=== PATIENT | male | born 1955 | race Caucasian/White ===

== ENCOUNTER → 2017-01-08 | Outpatient (CLI) | payer OTHER ==
[~2017-01-08] MED LIST: LISI-461 PO; PRLSR20 PO; ZLFUNK PO
[2017-01-08 12:34] LABS: BASO % 0.5 %; BASO ABS # 0.04 K/uL (0-0.2); COMPLETE YES; EOS % 4.2 %; HEMATOCRIT 46.8 % (42-52); IG% 0.1 %; LYMPH % 24.9 %; LYMPH ABS # 1.94 K/uL (1.2-3.4); MEAN CELL VOLUME 93.6 fL (80-100); MEAN CORPUSCULAR HEMOGLOBIN 30.2 pg (25-34); MEAN CORPUSCULAR HGB CONC 32.3 g/dl (32-36); MEAN PLATELET VOLUME 9.6 fL (7.4-10.4); MONO % 7.8 %; NEUT % 62.5 %; PLATELET COUNT 321 K/uL (130-400); WHITE BLOOD COUNT 7.79 K/uL (4.8-10.8)
[2017-01-08 13:06] LABS: CALCIUM 9.7 mg/dl (8.5-10.1)
[2017-01-08 13:08] LABS: ALKALINE PHOSPHATASE 79 U/L (45-117); ALT/SGPT 43 U/L (12-78); AST/SGOT 16 U/L (15-37); BLOOD UREA NITROGEN 13 mg/dl (7-18); BUN/CREATININE RATIO 11.6 (10-20); CARBON DIOXIDE 31 mmol/L (21-32); CHLORIDE 106 mmol/L (98-107); CHOLESTEROL 144 mg/dl (0-200); GLUCOSE 131 mg/dl (70-99); POTASSIUM 4.5 mmol/L (3.5-5.1); SODIUM 143 mmol/L (136-145); TRIGLYCERIDES 118 mg/dl (0-150); URIC ACID 7.3 mg/dl (2.6-7.2); VERY LOW DENSITY LIPOPROT CALC 24 mg/dl
[2017-01-08 13:09] LABS: ALB/GLOB RATIO 1.2 (0.9-2); CHOLESTEROL/HDL RATIO 3.3; HDL CHOLESTEROL 43 mg/dl; LDL CHOLESTEROL CALCULATED 77 mg/dl
[2017-01-08 13:21] LABS: ESTIMATED AVERAGE GLUCOSE 137 mg/dl; HA1C FLAG Normal (Normal)
== END | disposition home or self-care (01) ==
LOC: C.LABBFT 09:34
PROVIDERS: ATTEND Internal Medicine
DX: E11.9 Type 2 diabetes mellitus without complications (principal); M10.9 Gout, unspecified; E78.00 Pure hypercholesterolemia, unspecified

== ENCOUNTER → 2017-09-12 | Outpatient (CLI) | payer OTHER ==
[~2017-09-12] MED LIST changes: +DILT360C17 PO; +VALS320T PO; +VENL150C56 PO
[2017-09-12 12:37] LABS: HEMOGLOBIN A1C 6.4 % (4.5-5.6)
[2017-09-12 12:53] LABS: ALBUMIN 3.8 gm/dl (3.4-5.0); ALT/SGPT 77 U/L (12-78); BLOOD UREA NITROGEN 14 mg/dl (7-18); CALCIUM 9.4 mg/dl (8.5-10.1); CARBON DIOXIDE 31 mmol/L (21-32); CHOLESTEROL 224 mg/dl (0-200); CREATININE 1.16 mg/dl (0.60-1.40); GLUCOSE 125 mg/dl (70-99); SODIUM 139 mmol/L (136-145)
[2017-09-12 12:57] LABS: ALKALINE PHOSPHATASE 78 U/L (45-117); AST/SGOT 34 U/L (15-37); LDL CHOLESTEROL CALCULATED 129 mg/dl; TOTAL PROTEIN 7.2 gm/dl (6.4-8.2)
== END | disposition home or self-care (01) ==
LOC: C.LABBFT 09:57
PROVIDERS: ATTEND Urology
DX: N52.9 Male erectile dysfunction, unspecified (principal); R97.20 Elevated prostate specific antigen [PSA]; E78.00 Pure hypercholesterolemia, unspecified; E11.9 Type 2 diabetes mellitus without complications

== ENCOUNTER → 2017-10-06 | Outpatient (CLI) | payer OTHER ==
[~2017-10-06] MED LIST changes: -DILT360C17 PO; +GADAVIST IV PRN; -VALS320T PO; -VENL150C56 PO
--- NOTE | 2017-10-06 13:02 | DIAGNOSTIC IMAGING REPORT ---
PROSTATE MRI COMBO CLINICAL HISTORY: 62 years-old Male presenting with C61 Malignant neoplasm of [id number] Elevated PSA. TECHNIQUE: Multisequence, multiplanar MR imaging of the prostate was performed before and after the administration of intravenous contrast. Additional postprocessing was performed on a separate [employer] workstation by the radiologist for 3-D volumetric segmentation of the prostate and contouring of region(s) of interest (FREEDOM) for targeting. IV contrast: None. COMPARISON: None. FINDINGS: Prostate: The prostate measures 5.1 cm (FolicaaCAD prostate boundary segmentation volume 63 mL). Moderate changes of benign prostatic hyperplasia. Precontrast T1 weighted imaging demonstrates no evidence of intrinsic T1 hyperintensity to suggest hemorrhage. Seminal vesicles normal. No suspicious lesion is apparent in the transition or peripheral zones. Bladder: Normal. Bowel: Visualized portion of the rectum normal. Peritoneum: No free fluid in the pelvis. Lymph nodes: No lymphadenopathy in the visualized portion of the pelvis. Vasculature: Iliac vessels patent. Abdominal wall: Tiny bilateral fat-containing hernias. Osseous structures: Normal bone marrow signal intensity. IMPRESSION: 1. No suspicious lesions identified within the prostate gland. 2. Benign prostatic hyperplasia. Electronically signed by: Darrel Morrison M.D. 10/06/2017 1:00 PM Dictated Date/Time: 10/06/2017 12:54 PM
== END | disposition home or self-care (01) ==
LOC: C.MRIBC 09:13
PROVIDERS: ATTEND Urology
DX: C61 Malignant neoplasm of prostate (principal); R97.20 Elevated prostate specific antigen [PSA]

== ENCOUNTER 2021-05-29 09:06 | Inpatient (IN) ==
[2021-05-29 09:38] LABS: Appearance Urine Clear (Clear); Bacteria Urine Automated 1+ (Negative); Bilirubin Urine Negative (Negative); Blood Urine 2+ (Negative); Color Urine Yellow; Glucose Urine UA 3+ (Negative); Ketones Urine 1+ (Negative); Leukocyte Esterase Urine Negative (Negative); Nitrite Urine Negative (Negative); Protein Urine 2+ (Negative); Specific Gravity Urine 1.016 (1.000-1.030); Urobilinogen Urine Negative (Negative)
[2021-05-29] MEDS ORDERED: SODIUM CHLORIDE 0.9% 1000ML 1,000 ML IV ONE ×2 (10:52→14:36)
[2021-05-29 12:22] LABS: Basophils # (auto) 0.02 K/uL (0-0.2); Basophils % (auto) 0.1 %; Eosinophils # (auto) 0.01 K/uL (0-0.5); Hematocrit (blood only) 45.3 % (42-52); Hemoglobin 15.2 g/dL (14.0-18.0); Immature Granulocytes # (auto) 0.06 K/uL (0.00-0.02); Immature Granulocytes % (auto) 0.3 %; Lymphocytes # (auto) 1.07 K/uL (1.2-3.4); Lymphocytes % (auto) 5.2 %; Mean Corpuscular Hgb Conc 33.6 g/dL (32-36); Mean Corpuscular Volume 92.4 fL (80-100); Mean Platelet Volume 9.8 fL (7.4-10.4); Monocytes # (auto) 1.68 K/uL (0.11-0.59); Monocytes % (auto) 8.2 %; Neutrophils % (auto) 86.2 %; Platelet Count 350 K/uL (130-400); RDW Coefficient of Variation 14.4 % (11.5-14.5); RDW Standard Deviation 48.9 fL (36.4-46.3); White Blood Count 20.44 K/uL (4.8-10.8)
[2021-05-29] MEDS ORDERED: CIPROFLOXACIN / D5W 400 MG/200 ML BAG IV STA (12:32)
[2021-05-29 12:43] LABS: BUN Creatinine Ratio 8.9 (10-20); Calcium 9.3 mg/dl (8.5-10.1); Creatinine Clr Calc Pharmacy 54.1 ml/min; Est GFR (African American) 46.7 ml/min; Est GFR (Non-African American) 40.3 ml/min; Potassium 4.7 mmol/L (3.5-5.1)
--- NOTE | 2021-05-29 12:47 | Emergency Department Note ---
History of Present Illness General Chief complaint: Urinary Symptoms Stated complaint: SEVERE PAIN-BLADDER AND PROSTATE AREA Time Seen by Provider: 05/29/21 10:05 History of Present Illness Provider complaint: Dysuria polyuria Onset (ago): day(s) 1 Location: genitals Maximum Pain Intensity: 5 Current Pain Intensity: 5 Quality: + burning, + aching and + dull Relieved By: + none Exacerbated By: + other (Urination) Associated symptoms: no chest pain, no cough, no fever/chills, no headaches, no nausea/vomiting or no shortness of breath 66-year-old male presents emergency department with dysuria and polyuria. Patient reports his symptoms began yesterday. Patient reports that his pain is made worse when he urinates. Patient states he feels like he cannot urinate and empty his bladder completely. Patient states he is also been having some pain in his testicles as well as in his rectal area and states he feels like he cannot empty his bladder identifies having discomfort. Patient does state he has a history of lesions on his prostate that they were concerned could be cancerous however he follows up with Dr. Ludwig and they have just been monitoring these lesions. Patient has not had any active treatment for prostate cancer including no radiation chemotherapy or surgery. No fevers. Patient reports nausea but no vomiting. Patient states he has a history of kidney stones but does not feel similar to kidney stones. Home Medications Medication Instructions Recorded Confirmed Type [id number]-[id number]-[id number] 250 1 tab PO Q6H PRN 03/03/20 05/29/21 History mg-250 mg-65 mg tablet (Excedrin Migraine) cholecalciferol (vitamin D3) 25 25 mcg PO DAILY 03/03/20 05/29/21 History mcg (1,000 unit) capsule (Vitamin D3) vitamin B complex 1 tab PO DAILY 03/03/20 05/29/21 History metformin 500 mg tablet,extended 1,000 mg PO BID #360 tab 04/25/20 05/29/21 Rx release 24 hr sildenafil 100 mg tablet 100 mg PO DAILY PRN #18 tab 04/25/20 05/29/21 Rx amlodipine 5 mg tablet 5 mg PO DAILY #30 tab 04/16/21 05/29/21 Rx duloxetine 60 mg capsule,delayed 60 mg PO QAM #90 cap 04/16/21 05/29/21 Rx release irbesartan 300 mg tablet 300 mg PO QAM #90 tab 05/11/21 05/29/21 Rx aspirin 81 mg tablet,delayed 81 mg PO DAILY 05/29/21 05/29/21 History release ciprofloxacin HCl 500 mg tablet 500 mg PO BID 14 Days #28 tab 05/29/21 Rx ibuprofen 200 mg tablet 200 mg PO Q6H PRN 05/29/21 05/29/21 History Allergies Allergy/AdvReac Type Severity Reaction Status Date / Time No Known Allergies Allergy Unverified 05/29/21 11:41 Past Med/Surg History Medical History (Updated 05/29/21 @ 15:04 by TOBIN Thrasher) Acid reflux occasional; mylanta as needed Anemia Arthritis Cardiac murmur last echo > 10 years ago - does not follow w/ cardio. states "i think i outgrew it" Depression with anxiety Fatty liver disease, nonalcoholic Gastroesophageal reflux disease Gout History of colon polyps Migraines Mitral regurgitation Morbid obesity Obstructive sleep apnea BiPAP Prostate cancer no treatment - surveillance Urinary leakage Surgical History History of cataract surgery History of colonoscopy History of esophagogastroduodenoscopy (EGD) History of tonsillectomy Family History Father Slow to wake up after anesthesia Mother Slow to wake up after anesthesia Breast cancer Denies family history of Ovarian cancer Prostate cancer Myocardial infarction Colorectal cancer Social History Smoking Status: Never smoker Second Hand Exposure: No; Hx Alcohol Use: No Hx Substance Use: No Preferred Language: Tajik Communication Ability: Effective 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 Beliefs That Will Affect Care: None marital status: single Current Living Situation: Family current occupational status: employed current occupation: director of [employer] at [employer] Feels Safe at Home: Yes Dental Care, Regularly: No Physical Activity Frequency: Does not Exercise Assistive Devices: Glasses Review of Systems A total of 10 systems reviewed and were otherwise negative Physical Exam Vital Signs Vital Signs - 24 hr 05/29/21 09:16 05/29/21 10:49 05/29/21 11:02 Temperature 36.8 C Temperature Source Temporal Artery Scan Pulse Rate 124 H 132 H 126 H Pulse Rate [Apical] 137 H Pulse Rate from SpO2 Sensor 126 H Pulse Rhythm Regular Pulse Rhythm [Apical] Regular Pulse Strength Normal Pulse Strength [Apical] Normal Respiratory Rate 20 28 H 32 H Respiratory Effort / Characteristics Non-Labored Non-Labored Spontaneous Respiratory Depth Normal Normal Respiratory Pattern Regular Regular Blood Pressure 187/111 H 199/116 H 215/114 H Blood Pressure [Right Arm] 199/116 H Blood Pressure Mean 136 143 147 Blood Pressure Mean [Right Arm] 143 Blood Pressure Position Sitting Blood Pressure Position [Right Arm] Sitting Pulse Oximetry 98 98 97 Oxygen Delivery Method Room Air Room Air Sepsis New/Unexplained Change in Mental Status N/A Sepsis Action Taken by Nursing No Action Required 05/29/21 11:03 05/29/21 12:00 05/29/21 12:30 Temperature Temperature Source Pulse Rate 131 H Pulse Rate [Apical] Pulse Rate from SpO2 Sensor 131 H 139 H Pulse Rhythm Pulse Rhythm [Apical] Pulse Strength Pulse Strength [Apical] Respiratory Rate 32 H Respiratory Effort / Characteristics Respiratory Depth Respiratory Pattern Blood Pressure 195/109 H Blood Pressure [Right Arm] Blood Pressure Mean 137 Blood Pressure Mean [Right Arm] Blood Pressure Position Blood Pressure Position [Right Arm] Pulse Oximetry 99 96 98 Oxygen Delivery Method Room Air Sepsis New/Unexplained Change in Mental Status Sepsis Action Taken by Nursing Physical Exam GENERAL: He is oriented to person, place, and time. He appears well-developed and well-nourished. He does not appear distressed. HENT: Exam performed. - Head: Normocephalic and atraumatic. - Right Ear: External ear normal. No mastoid tenderness. - Left Ear: External ear normal. No mastoid tenderness. - Mouth/Throat: The oropharynx is clear and moist. No trismus in the jaw. No dental abscesses or uvula swelling. No oropharyngeal exudate or tonsillar abscesses. EYES: Conjunctivae and EOM are normal. Pupils are equal, round, and reactive to light. Right eye exhibits no discharge. Left eye exhibits no discharge. No scleral icterus. NECK: Normal range of motion. Neck supple. No JVD present. No spinous process tenderness present. No carotid bruit present. No rigidity. No tracheal deviation and normal range of motion present. No Brudzinski's sign and no Kernig's sign noted. CV: Normal rate, regular rhythm, normal heart sounds and intact distal pulses. There is no peripheral edema. Palpable radial pulses bue. PULM/CHEST: Effort normal and breath sounds normal. No respiratory distress. No stridor. He has no wheezes. He has no rales. - Chest Wall: He exhibits no tenderness. ABD: The abdomen is soft. Bowel sounds are normal. He has no distension. No mass is present. There is no tenderness. There is no rebound, no guarding, no Mu rphy's sign and no tenderness at McBurney's point. Rovsig negative. No CVA tenderness bilaterally. : Pain on palpation over the epididymis. No pain on palpation of either testicle. Rectal: Good tone no bright red blood per rectum. MUSC/SKEL: Normal range of motion. There is no peripheral edema, tenderness or deformity. LYMPH: No cervical adenopathy. NEURO: He is alert and oriented to person, place, and time. He has normal strength. No cranial nerve deficit or sensory deficit. Coordination and gait normal. GCS eye subscore is 4. GCS verbal subscore is 5. GCS motor subscore is 6. Cerebellar tests wnl. SKIN: Skin is warm and dry. He is not diaphoretic. PSYCH: He has a normal mood and affect. Behavior is normal. Judgment and thought content normal. Course Course 1005: The patient was evaluated in room B3. A complete history and physical exam was performed Cardiac monitoring: An order was placed for continuous cardiac monitoring. The monitor shows a rate of 100 with sinus rhythm 1045: We are planning on discharging the patient home with antibiotics for presumed prostatitis/epididymitis however the patient was found to be very tachycardic at time of discharge. Labs and imaging ordered for the patient. 1404: Labs show leukocytosis of 20. Imaging shows a large left-sided kidney stone with hydroureteronephrosis. Discussed with urology GALINA Magaña who states she will be down to evaluate the patient. Discussed with [facility] hospitalist Dr. Zacarias will evaluate the patient for admission. Antibiotics ordered for the patient. 1435: Lactic acid greater than 1:04 liter of IV fluids. Additional IV fluids ordered for the patient. Patient blood pressure is stable. Urology made aware of the patient's lactic acid and state they will plan on taking the patient for stenting of his ureter later this afternoon. Administered Medications Discontinued Medications Sodium Chloride (Nss 1000ml) 1,000 mls @ 999 mls/hr IV .Q1H1M ONE Stop: 05/29/21 11:52 Last Infusion: 05/29/21 14:00 Dose: 999 mls/hr Documented by: [id number] Infusion: 05/29/21 13:29 Dose: 0 mls/hr Documented by: [id number] Admin: 05/29/21 12:46 Dose: 999 mls/hr Documented by: [id number] Ciprofloxacin (Cipro / D5w) 400 mg in 200 mls @ 200 mls/hr IV NOW STA Stop: 05/29/21 13:31 Last Infusion: 05/29/21 14:00 Dose: 200 mls/hr Documented by: [id number] Infusion: 05/29/21 13:29 Dose: 0 mls/hr Documented by: [id number] Admin: 05/29/21 12:46 Dose: 200 mls/hr Documented by: [id number] Critical Care Time Critical Care Time: Yes Total Critical Care Time: 64 I have personally spent greater than 64 minutes of critical care time in the direct management of this patient. This includes bedside care, interpretation of diagnostic studies, and testing, discussion with consultants, patient, and family members, and other required patient management activities. This 64 minutes is in excess of all separately billable procedures. Medical Decision Making Laboratory Data Result diagrams: 05/29/21 12:12 05/29/21 12:12 Lab Results 05/29/21 05/29/21 05/29/21 Range/Units 09:29 12:12 12:12 WBC 20.44 H (4.8-10.8) K/uL RBC 4.90 (4.7-6.1) M/uL Hgb 15.2 (14.0-18.0) g/dL Hct 45.3 (42-52) % MCV 92.4 (80-100) fL MCH 31.0 (25-34) pg MCHC 33.6 (32-36) g/dL RDW Std Deviation 48.9 H (36.4-46.3) fL RDW Coeff of Keven 14.4 (11.5-14.5) % Plt Count 350 (130-400) K/uL MPV 9.8 (7.4-10.4) fL Immature Gran % (Auto) 0.3 % Neut % (Auto) 86.2 % Lymph % (Auto) 5.2 % [place] % (Auto) 8.2 % Eos % (Auto) 0.0 % Baso % (Auto) 0.1 % Neut # (Auto) 17.60 H (1.4-6.5) K/uL Lymph # (Auto) 1.07 L (1.2-3.4) K/uL [place] # (Auto) 1.68 H (0.11-0.59) K/uL Eos # (Auto) 0.01 (0-0.5) K/uL Baso # (Auto) 0.02 (0-0.2) K/uL Immature Gran # (Auto) 0.06 H (0.00-0.02) K/uL Sodium 136 (136-145) mmol/L Potassium 4.7 (3.5-5.1) mmol/L Chloride 99 (98-107) mmol/L Carbon Dioxide 29 (21-32) mmol/L Anion Gap 8.0 (3-11) BUN 16 (7-18) mg/dl Creatinine 1.75 H (0.6-1.4) mg/dl Est Cr Clr Drug Dosing 54.1 ml/min Est GFR ( Amer) 46.7 ml/min Est GFR (Non-Af Amer) 40.3 ml/min BUN/Creatinine Ratio 8.9 L (10-20) Glucose 254 H (70-99) mg/dl Lactate (0.4-2.0) mmol/L Calcium 9.3 (8.5-10.1) mg/dl Specimen Hemolysis Urine Color Yellow Urine Appearance Clear (Clear) Urine pH 6.0 (4.5-7.5) Ur Specific [place] 1.016 (1.000-1.030) Urine Protein 2+ H (Negative) Urine Glucose (UA) 3+ H (Negative) Urine Ketones 1+ H (Negative) Urine Blood 2+ H (Negative) Urine Nitrite Negative (Negative) Urine Bilirubin Negative (Negative) Urine Urobilinogen Negative (Negative) Ur Leukocyte Esterase Negative (Negative) Urine WBC (Auto) 5-10 H (0-5) /hpf Urine RBC (Auto) 10-30 H (0-4) /hpf U Hyaline Cast (Auto) 1-5 (0-5) /lpf U Epithel Cells (Auto) 5-10 H (0-5) /lpf Urine Bacteria (Auto) 1+ H (Negative) 05/29/21 Range/Units 13:47 WBC (4.8-10.8) K/uL RBC (4.7-6.1) M/uL Hgb (14.0-18.0) g/dL Hct (42-52) % MCV (80-100) fL MCH (25-34) pg MCHC (32-36) g/dL RDW Std Deviation (36.4-46.3) fL RDW Coeff of Keven (11.5-14.5) % Plt Count (130-400) K/uL MPV (7.4-10.4) fL Immature Gran % (Auto) % Neut % (Auto) % Lymph % (Auto) % [place] % (Auto) % Eos % (Auto) % Baso % (Auto) % Neut # (Auto) (1.4-6.5) K/uL Lymph # (Auto) (1.2-3.4) K/uL [place] # (Auto) (0.11-0.59) K/uL Eos # (Auto) (0-0.5) K/uL Baso # (Auto) (0-0.2) K/uL Immature Gran # (Auto) (0.00-0.02) K/uL Sodium (136-145) mmol/L Potassium (3.5-5.1) mmol/L Chloride (98-107) mmol/L Carbon Dioxide (21-32) mmol/L Anion Gap (3-11) BUN (7-18) mg/dl Creatinine (0.6-1.4) mg/dl Est Cr Clr Drug Dosing ml/min Est GFR ( Amer) ml/min Est GFR (Non-Af Amer) ml/min BUN/Creatinine Ratio (10-20) Glucose (70-99) mg/dl Lactate 4.2 H* (0.4-2.0) mmol/L Calcium (8.5-10.1) mg/dl Specimen Hemolysis Urine Color Urine Appearance (Clear) Urine pH (4.5-7.5) Ur Specific [place] (1.000-1.030) Urine Protein (Negative) Urine Glucose (UA) (Negative) Urine Ketones (Negative) Urine Blood (Negative) Urine Nitrite (Negative) Urine Bilirubin (Negative) Urine Urobilinogen (Negative) Ur Leukocyte Esterase (Negative) Urine WBC (Auto) (0-5) /hpf Urine RBC (Auto) (0-4) /hpf U Hyaline Cast (Auto) (0-5) /lpf U Epithel Cells (Auto) (0-5) /lpf Urine Bacteria (Auto) (Negative) Imaging Data Radiologist's Impression: Scrotum Ultrasound 05/29/21 10:54 US scrotum/testicle CLINICAL HISTORY: 66 years-old Male with testicular pain dysuria. Acute scrotal pain with dysuria COMPARISON STUDY: CT abdomen and pelvis of same day TECHNIQUE: Real-time, grayscale, and color Doppler sonography of the testes and scrotum is performed. Images are reviewed in the transverse and longitudinal planes. FINDINGS: RIGHT HEMISCROTUM: The right testis measures 5.0 x 3.2 x 2.3 cm and the parenchyma appears unremarkable. No intratesticular mass is seen. Normal- appearing arterial inflow is present within the right testicle. 1.4 x 1.5 x 0.9 cm epididymal head cyst. No varicocele or hydrocele is identified. LEFT HEMISCROTUM: The left testis measures 4.3 x 3.2 x 2.4 cm and the parenchyma appears unremarkable. No intratesticular mass is seen. Normal-appearing arterial inflow is present within the left testicle. The left epididymal head appears normal. No varicocele or hydrocele is identified. IMPRESSION: 1. Unremarkable scrotal ultrasound. 2. 1.5 cm right epididymal head cyst. ACT 112: Negative or not required by law. The above report was generated using voice recognition software. It may contain grammatical, syntax or spelling errors. Electronically signed by: Aldair Lozano M.D. 05/29/2021 1:47 PM Abdomen/Pelvis CT 05/29/21 12:[address] WITHOUT CONTRAST CT DOSE: 1452.01 mGy.cm HISTORY: Acute dysuria with fever dysuria fever ro pyelo TECHNIQUE: Multiaxial CT images of the abdomen and pelvis were performed without contrast. A dose lowering technique was utilized adhering to the principles of ALARA. COMPARISON STUDY: CT abdomen and pelvis 06/04/2020 FINDINGS: Low clinical suspicion solid nodules of the basal left lower lobe measure up to 5 mm, unchanged from 06/04/2020. Unchanged right hemidiaphragmatic elevation. The imaged inferior cardiac chambers are unremarkable. No pneumatosis or pneumoperitoneum. The unenhanced spleen, pancreas, gallbladder and adrenal glands are unremarkable. Hepatomegaly with hepatic steatosis. No hepatic mass lesion joellen ntified. (Bilateral perinephric stranding. Right kidney is otherwise unremarkable. There is mild left-sided hydroureteronephrosis secondary to an obstructing 9 x 6 x 6 mm calculus within the distal aspect of the left ureterovesicular junction. Mild urinary bladder wall thickening with partial distention. Prostamegaly. Small fat filled inguinal hernias. Calcified plaque the abdominal aorta without aneurysm. No adenopathy. No bowel obstruction or bowel wall thickening. Mild colonic diverticulosis. No ascites or mesenteric inflammation. Normal appendix. Tiny fat filled periumbilical hernia. Degenerative changes of the spine, pelvis and hips. Large posterior disc osteophyte complex at L3-L4 and results in at least moderate central canal and bilateral neural foraminal narrowing. IMPRESSION: 1. Mild left-sided hydroureteronephrosis secondary to an obstructing 9 mm calculus of the left ureterovesicular junction. 2. No bowel obstruction or bowel wall thickening. Normal appendix. 3. Colonic diverticulosis. 4. Hepatic steatosis 5. Additional findings as above. ACT 112: Negative or not required by law. The above report was generated using voice recognition software. It may contain grammatical, syntax or spelling errors. Electronically signed by: Aldair Lozano M.D. 05/29/2021 1:15 PM ECG Data Indication: + abdominal pain Rate (beats per minute): 127 Rhythm: + sinus tachycardia ECG Intervals/blocks: + Normal QRS, + Normal PA and + Normal QT-c ECG ST segments: + Normal ST segments MDM Narrative 1005: The patient was evaluated in room B3. A complete history and physical exam was performed Cardiac monitoring: An order was placed for continuous cardiac monitoring. The monitor shows a rate of 100 with sinus rhythm 1045: We are planning on discharging the patient home with antibiotics for presumed prostatitis/epididymitis however the patient was found to be very tachycardic at time of discharge. Labs and imaging ordered for the patient. 1404: Labs show leukocytosis of 20. Imaging shows a large left-sided kidney stone with hydroureteronephrosis. Discussed with urology GALINA Magaña who states she will be down to evaluate the patient. Discussed with [facility] hospitalist Dr. Zacarias will evaluate the patient for admission. Antibiotics ordered for the patient. 1435: Lactic acid greater than 1:04 liter of IV fluids. Additional IV fluids ordered for the patient. Patient blood pressure is stable. Urology made aware of the patient's lactic acid and state they will plan on taking the patient for stenting of his ureter later this afternoon. Impression & Plan Hydronephrosis with renal calculous obstruction, WOODROW (acute kidney injury), Sepsis Discharge Plan Visit Data Chief Complaint: Urinary Symptoms Stated Complaint: SEVERE PAIN-BLADDER AND PROSTATE AREA ED Provider: Capo Madrigal Discharge Problem: Hydronephrosis with renal calculous obstruction, WOODROW (acute kidney injury), Sepsis Patient Disposition: Admitted As Inpatient Discharge Instructions Keely/Other Patient Handouts: ED Prostatitis Forms Stand Alone Forms: [facility], Virtual Emergency Department, Important Visit Information Prescriptions Prescriptions: New ciprofloxacin HCl 500 mg tablet 500 mg PO BID 14 Days Qty: 28 RF: 0 No Action duloxetine 60 mg capsule,delayed release(DR/EC) 60 mg PO QAM Qty: 90 RF: 3 amlodipine 5 mg tablet 5 mg PO DAILY Qty: 30 RF: 5 irbesartan 300 mg tablet 300 mg PO QAM Qty: 90 RF: 3 metformin 500 mg tablet extended release 24 hr 1,000 mg PO BID Qty: 360 RF: 3 sildenafil 100 mg tablet 100 mg PO DAILY PRN (Reason: sexual activity) Qty: 18 RF: 3 vitamin B complex Tablet 1 tab PO DAILY RF: 0 cholecalciferol (vitamin D3) [Vitamin D3] 25 mcg (1,000 unit) Capsule 25 mcg PO DAILY RF: 0 Excedrin Migraine 250-250-65 mg Tablet 1 tab PO Q6H PRN (Reason: Migraine Headache) RF: 0 aspirin [Aspir-Low] 81 mg Tablet,Delayed Release (Dr/Ec) 81 mg PO DAILY RF: 0 ibuprofen 200 mg Tablet 200 mg PO Q6H PRN (Reason: Pain) RF: 0 Referrals Referrals: Hiro Dudley MD [Primary Care Provider] - (Follow-up in 1-7 days.) Hiro Ludwig MD [Physician] - (Follow-up in 1-7 days.)
--- NOTE | 2021-05-29 13:17 | CT Scan Report ---
ABDOMEN AND PELVIS CT WITHOUT CONTRAST CT DOSE: 1452.01 mGy.cm HISTORY: Acute dysuria with fever dysuria fever ro pyelo TECHNIQUE: Multiaxial CT images of the abdomen and pelvis were performed without contrast. A dose lo wering technique was utilized adhering to the principles of ALARA. COMPARISON STUDY: CT abdomen and pelvis 06/04/2020 FINDINGS: Low clinical suspicion solid nodules of the basal left lower lobe measure up to 5 mm, uncha nged from 06/04/2020. Unchanged right hemidiaphragmatic elevation. The imaged inferior cardiac chamber s are unremarkable. No pneumatosis or pneumoperitoneum. The unenhanced spleen, pancreas, gallbladder and adrenal glands are unremarkable. Hepatomegaly with h epatic steatosis. No hepatic mass lesion identified. (Bilateral perinephric stranding. Right kidney is otherwise unremarkable. There is mild left-sided hy droureteronephrosis secondary to an obstructing 9 x 6 x 6 mm calculus within the distal aspect of the left ureterovesicular junction. Mild urinary bladder wall thickening with partial distention. Prosta megaly. Small fat filled inguinal hernias. Calcified plaque the abdominal aorta without aneurysm. No adenopathy. No bowel obstruction or bowel wall thickening. Mild colonic diverticulosis. No ascites or mesenteric inflammation. Normal appendix. Tiny fat filled periumbilical hernia. Degenerative changes of the spin e, pelvis and hips. Large posterior disc osteophyte complex at L3-L4 and results in at least moderate central canal and bilateral neural foraminal narrowing. IMPRESSION: 1. Mild left-sided hydroureteronephrosis secondary to an obstructing 9 mm calculus of the left ureter ovesicular junction. 2. No bowel obstruction or bowel wall thickening. Normal appendix. 3. Colonic diverticulosis. 4. Hepatic steatosis 5. Additional findings as above. ACT 112: Negative or not required by law. The above report was generated using voice recognition software. It may contain grammatical, syntax o r spelling errors. Electronically signed by: Aldair Lozano M.D. 05/29/2021 1:15 PM
--- NOTE | 2021-05-29 13:48 | Ultrasound Report ---
US scrotum/testicle CLINICAL HISTORY: 66 years-old Male with testicular pain dysuria. Acute scrotal pain with dysuria COMPARISON STUDY: CT abdomen and pelvis of same day TECHNIQUE: Real-time, grayscale, and color Doppler sonography of the testes and scrotum is performed. Images are reviewed in the transverse and longitudinal planes. FINDINGS: RIGHT HEMISCROTUM: The right testis measures 5.0 x 3.2 x 2.3 cm and the parenchyma appears unremarkab le. No intratesticular mass is seen. Normal-appearing arterial inflow is present within the right nicole ticle. 1.4 x 1.5 x 0.9 cm epididymal head cyst. No varicocele or hydrocele is identified. LEFT HEMISCROTUM: The left testis measures 4.3 x 3.2 x 2.4 cm and the parenchyma appears unremarkable . No intratesticular mass is seen. Normal-appearing arterial inflow is present within the left testic le. The left epididymal head appears normal. No varicocele or hydrocele is identified. IMPRESSION: 1. Unremarkable scrotal ultrasound. 2. 1.5 cm right epididymal head cyst. ACT 112: Negative or not required by law. The above report was generated using voice recognition software. It may contain grammatical, syntax o r spelling errors. Electronically signed by: Aldair Lozano M.D. 05/29/2021 1:47 PM
--- NOTE | 2021-05-29 14:32 | History & Physical Report ---
Date of Service May 29, 2021 Assessment & Plan (1) Nephrolithiasis: Plan: Concern for possible infection considering elevated white count Admit to a monitored bed Aggressive IV hydration Patient seen with urology, plans for cystoscopy with possible stent placement today or tomorrow, patient currently n.p.o. Patient was given Cipro IV in the emergency room, okay to continue these pending cultures Pain control with IV Tylenol and Dilaudid as needed (2) Hypertension: Plan: Patient on amlodipine and irbesartan as an outpatient, can continue these p.o. for now I will dose the morning Will give metoprolol 5 mg IV x1 now for very elevated blood pressure and heart rate Hopefully will come down with treatment of symptoms related to kidney stone (3) Non-alcoholic fatty liver disease: Plan: Continue to monitor, no signs of liver failure (4) Obstructive sleep apnea: Plan: I will order CPAP is for him patient is (5) Diabetes mellitus: Plan: Patient is on metformin which we will hold Low sliding scale insulin We will hold metformin for now Diabetic diet once cleared for p.o.'s History of Present Illness Chief Complaint: Abdominal pain Primary Care Provider: Kolton Dudley MD This is a 66-year-old male with past medical history of [place], hypertension, GERD, phw-gapekyg-zpsllozbx diabetes mellitus that presents today with lower abdominal pain. Patient is pleasantly good historian. Patient states that the pain started last night. It was fairly mild but continued to worsen throughout the night into this morning. He denied any fevers or chills. He denied any changes in his bowel function. He did note that he had incomplete emptying of his urine but that there is no hematuria or dysuria associated with this. He denies any fevers or chills. He also denies any palpitations, chest pain, or shortness of breath. The pain became severe enough for him to come to the emergency room for further evaluation. In the ER, he was found to be hypertensive and tachycardic, his pulse did reach into the 140s and was sinus tach on monitor. CT scan showed a 9 mm stone at the left ureterovesicular junction the patient is now being admitted for obstructing nephrolithiasis. Patient was seen with the urology [facility]. He tells us he had had nothing to eat since last night due to ongoing nausea. He is otherwise comfortable. Allergies Allergy/AdvReac Type Severity Reaction Status Date / Time No Known Allergies Allergy Unverified 05/29/21 11:41 Home Medications Medication Instructions Recorded Confirmed Type [id number]-gadxseapelems-mlmumeyf 250 1 tab PO Q6H PRN 03/03/20 05/29/21 History mg-250 mg-65 mg tablet (Excedrin Migraine) cholecalciferol (vitamin D3) 25 25 mcg PO DAILY 03/03/20 05/29/21 History mcg (1,000 unit) capsule (Vitamin D3) vitamin B complex 1 tab PO DAILY 03/03/20 05/29/21 History metformin 500 mg tablet,extended 1,000 mg PO BID #360 tab 04/25/20 05/29/21 Rx release 24 hr sildenafil 100 mg tablet 100 mg PO DAILY PRN #18 tab 04/25/20 05/29/21 Rx amlodipine 5 mg tablet 5 mg PO DAILY #30 tab 04/16/21 05/29/21 Rx duloxetine 60 mg capsule,delayed 60 mg PO QAM #90 cap 04/16/21 05/29/21 Rx release irbesartan 300 mg tablet 300 mg PO QAM #90 tab 05/11/21 05/29/21 Rx aspirin 81 mg tablet,delayed 81 mg PO DAILY 05/29/21 05/29/21 History release ciprofloxacin HCl 500 mg tablet 500 mg PO BID 14 Days #28 tab 05/29/21 Rx ibuprofen 200 mg tablet 200 mg PO Q6H PRN 05/29/21 05/29/21 History Past Med/Surg History Medical History (Updated 05/29/21 @ 14:33 by Jewel Zacarias DO) Acid reflux occasional; mylanta as needed Anemia Arthritis Cardiac murmur last echo > 10 years ago - does not follow w/ cardio. states "i think i outgrew it" Depression with anxiety Fatty liver disease, nonalcoholic Gastroesophageal reflux disease Gout History of colon polyps Migraines Mitral regurgitation Morbid obesity Obstructive sleep apnea BiPAP Prostate cancer no treatment - surveillance Urinary leakage Surgical History History of cataract surgery History of colonoscopy History of esophagogastroduodenoscopy (EGD) History of tonsillectomy Family History Father Slow to wake up after anesthesia Mother Slow to wake up after anesthesia Breast cancer Denies family history of Ovarian cancer Prostate cancer Myocardial infarction Colorectal cancer Social History Smoking Status: Never smoker Second Hand Exposure: No; Hx Alcohol Use: No Hx Substance Use: No Preferred Language: Filipino Communication Ability: Effective Mri Assistant Required: No Beliefs That Will Affect Care: None marital status: single Current Living Situation: Family current occupational status: employed 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[place] Feels Safe at Home: Yes Dental Care, Regularly: No Physical Activity Frequency: Does not Exercise Assistive Devices: Glasses Review of Systems Constitutional: no fever, no chills, no weakness, no weight loss and no weight gain Eyes: as per Subjective / HPI Respiratory: no cough, no chest congestion, no dyspnea and no dyspnea on exertion Cardiovascular: no chest pain, no orthopnea, no palpitations, no lightheadedness and no edema Gastrointestinal: + abdominal pain and + nausea; no vomiting, no hematemesis, no cramping, no constipation and no diarrhea/loose stools Genitourinary: + urinary frequency; no dysuria, no difficulty urinating, no urinary hesitancy, no urinary incontinence, no decreased urination or no hematuria Musculoskeletal: no back pain, no neck pain, no joint pain, no stiffness and no myalgia Integumentary: no rash Neurologic: no gait abnormality, no unsteadiness, no falls and no generalized weakness Physical Exam Constitutional: cooperative; no acute distress Neck: trachea midline, no thyromegaly Respiratory: normal respiratory effort Auscultation: lungs clear to auscultation bilaterally; no crackles, no rales, no rhonchi and no wheezes Cardiovascular: Rate/Rhythm: regular rhythm and + tachycardic Heart Sounds: normal S1 and normal S2 Gastrointestinal (Abdomen): Inspection/Auscultation: abdomen normal to inspection Percussion/Palpation: abdomen soft; abdomen nontender, no guarding, abdomen not rigid and no hepatosplenomegaly Skin: no rashes, warm and dry Genitourinary: no CVA tenderness Results & Data Results & Data ([facility]) Vital Signs (Past 12 Hours) Vital Signs Temp Pulse Pulse Resp BP BP Pulse Ox 05/29/21 12:30 98 05/29/21 12:00 131 H 32 H 195/109 H 96 05/29/21 11:03 99 05/29/21 11:02 126 H 32 H 215/114 H 97 05/29/21 10:49 132 H 137 H 28 H 199/116 H 199/116 H 98 05/29/21 09:16 36.8 C 124 H 20 187/111 H 98 Laboratory Results Laboratory Results WBC 20.44 K/uL (4.8-10.8) H 05/29/21 12:12 RBC 4.90 M/uL (4.7-6.1) 05/29/21 12:12 Hgb 15.2 g/dL (14.0-18.0) 05/29/21 12:12 Hct 45.3 % (42-52) 05/29/21 12:12 MCV 92.4 fL (80-100) 05/29/21 12:12 MCH 31.0 pg (25-34) 05/29/21 12:12 MCHC 33.6 g/dL (32-36) 05/29/21 12:12 RDW Std Deviation 48.9 fL (36.4-46.3) H 05/29/21 12:12 RDW Coeff of Keven 14.4 % (11.5-14.5) 05/29/21 12:12 Plt Count 350 K/uL (130-400) 05/29/21 12:12 MPV 9.8 fL (7.4-10.4) 05/29/21 12:12 Immature Gran % (Auto) 0.3 % 05/29/21 12:12 Neut % (Auto) 86.2 % 05/29/21 12:12 Lymph % (Auto) 5.2 % 05/29/21 12:12 [place] % (Auto) 8.2 % 05/29/21 12:12 Eos % (Auto) 0.0 % 05/29/21 12:12 Baso % (Auto) 0.1 % 05/29/21 12:12 Neut # (Auto) 17.60 K/uL (1.4-6.5) H 05/29/21 12:12 Lymph # (Auto) 1.07 K/uL (1.2-3.4) L 05/29/21 12:12 [place] # (Auto) 1.68 K/uL (0.11-0.59) H 05/29/21 12:12 Eos # (Auto) 0.01 K/uL (0-0.5) 05/29/21 12:12 Baso # (Auto) 0.02 K/uL (0-0.2) 05/29/21 12:12 Immature Gran # (Auto) 0.06 K/uL (0.00-0.02) H 05/29/21 12:12 Sodium 136 mmol/L (136-145) 05/29/21 12:12 Potassium 4.7 mmol/L (3.5-5.1) 05/29/21 12:12 Chloride 99 mmol/L (98-107) 05/29/21 12:12 Carbon Dioxide 29 mmol/L (21-32) 05/29/21 12:12 Anion Gap 8.0 (3-11) 05/29/21 12:12 BUN 16 mg/dl (7-18) 05/29/21 12:12 Creatinine 1.75 mg/dl (0.6-1.4) H 05/29/21 12:12 Est Cr Clr Drug Dosing 54.1 ml/min 05/29/21 12:12 Est GFR ( Amer) 46.7 ml/min 05/29/21 12:12 Est GFR (Non-Af Amer) 40.3 ml/min 05/29/21 12:12 BUN/Creatinine Ratio 8.9 (10-20) L 05/29/21 12:12 Glucose 254 mg/dl (70-99) H 05/29/21 12:12 Lactate 4.2 mmol/L (0.4-2.0) H* 05/29/21 13:47 Calcium 9.3 mg/dl (8.5-10.1) 05/29/21 12:12 Specimen Hemolysis 05/29/21 12:12 Urine Color Yellow 05/29/21 09: Urine Appearance Clear (Clear) 05/29/21 09: Urine pH 6.0 (4.5-7.5) 05/29/21 09:29 Ur Specific [place] 1.016 (1.000-1.030) 05/29/21 09:29 Urine Protein 2+ (Negative) H 05/29/21 09:29 Urine Glucose (UA) 3+ (Negative) H 05/29/21 09:29 Urine Ketones 1+ (Negative) H 05/29/21 09:29 Urine Blood 2+ (Negative) H 05/29/21 09:29 Urine Nitrite Negative (Negative) 05/29/21 09:29 Urine Bilirubin Negative (Negative) 05/29/21 09:29 Urine Urobilinogen Negative (Negative) 05/29/21 09:29 Ur Leukocyte Esterase Negative (Negative) 05/29/21 09:29 Urine WBC (Auto) 5-10 /hpf (0-5) H 05/29/21 09:29 Urine RBC (Auto) 10-30 /hpf (0-4) H 05/29/21 09:29 U Hyaline Cast (Auto) 1-5 /lpf (0-5) 05/29/21 09:29 U Epithel Cells (Auto) 5-10 /lpf (0-5) H 05/29/21 09:29 Urine Bacteria (Auto) 1+ (Negative) H 05/29/21 09:29 Impressions Scrotum Ultrasound 05/29/21 10:54 US scrotum/testicle CLINICAL HISTORY: 66 years-old Male with testicular pain dysuria. Acute scrotal pain with dysuria COMPARISON STUDY: CT abdomen and pelvis of same day TECHNIQUE: Real-time, grayscale, and color Doppler sonography of the testes and scrotum is performed. Images are reviewed in the transverse and longitudinal planes. FINDINGS: RIGHT HEMISCROTUM: The right testis measures 5.0 x 3.2 x 2.3 cm and the parenchyma appears unremarkable. No intratesticular mass is seen. Normal- appearing arterial inflow is present within the right testicle. 1.4 x 1.5 x 0.9 cm epididymal head cyst. No varicocele or hydrocele is identified. LEFT HEMISCROTUM: The left testis measures 4.3 x 3.2 x 2.4 cm and the parenchyma appears unremarkable. No intratesticular mass is seen. Normal-appearing arterial inflow is present within the left testicle. The left epididymal head appears normal. No varicocele or hydrocele is identified. IMPRESSION: 1. Unremarkable scrotal ultrasound. 2. 1.5 cm right epididymal head cyst. ACT 112: Negative or not required by law. The above report was generated using voice recognition software. It may contain grammatical, syntax or spelling errors. Electronically signed by: Aldair Lozano M.D. 05/29/2021 1:47 PM Abdomen/Pelvis CT 05/29/21 12:[address] WITHOUT CONTRAST CT DOSE: 1452.01 mGy.cm HISTORY: Acute dysuria with fever dysuria fever ro pyelo TECHNIQUE: Multiaxial CT images of the abdomen and pelvis were performed without contrast. A dose lowering technique was utilized adhering to the principles of ALARA. COMPARISON STUDY: CT abdomen and pelvis 06/04/2020 FINDINGS: Low clinical suspicion solid nodules of the basal left lower lobe measure up to 5 mm, unchanged from 06/04/2020. Unchanged right hemidiaphragmatic elevation. The imaged inferior cardiac chambers are unremarkable. No pneumatosis or pneumoperitoneum. The unenhanced spleen, pancreas, gallbladder and adrenal glands are unremarkable. Hepatomegaly with hepatic steatosis. No hepatic mass lesion identified. (Bilateral perinephric stranding. Right kidney is otherwise unremarkable. There is mild left-sided hydroureteronephrosis secondary to an obstructing 9 x 6 x 6 mm calculus within the distal aspect of the left ureterovesicular junction. Mild urinary bladder wall thickening with partial distention. Prostamegaly. Small fat filled inguinal hernias. Calcified plaque the abdominal aorta without aneurysm. No adenopathy. No bowel obstruction or bowel wall thickening. Mild colonic diverticulosis. No ascites or mesenteric inflammation. Normal appendix. Tiny fat filled periumbilical hernia. Degenerative changes of the spine, pelvis and hips. Large posterior disc osteophyte complex at L3-L4 and results in at least moderate central canal and bilateral neural foraminal narrowing. IMPRESSION: 1. Mild left-sided hydroureteronephrosis secondary to an obstructing 9 mm calculus of the left ureterovesicular junction. 2. No bowel obstruction or bowel wall thickening. Normal appendix. 3. Colonic diverticulosis. 4. Hepatic steatosis 5. Additional findings as above. ACT 112: Negative or not required by law. The above report was generated using voice recognition software. It may contain grammatical, syntax or spelling errors. Electronically signed by: Aldair Lozano M.D. 05/29/2021 1:15 PM PG Care Time/CCT Total # of Minutes Spent Total Time Spent with Patient: Total time spent is greater than 50% in coordination of care (as documented) at patient's floor/unit and/or counseling patient: Coding Level of Care Code 32951 Initial Inpt Care Lvl 3 Diagnoses Non-alcoholic fatty liver disease K76.0 Hypertension I10 Obstructive sleep apnea G47.33 Nephrolithiasis N20.0 Diabetes mellitus E11.9
[2021-05-29] MEDS ORDERED: SODIUM CHLORIDE 0.9% 1000ML 500 ML IV ONE (14:36)
[2021-05-29] MEDS ORDERED: METOPROLOL TARTRATE 1 MG/ML VIAL IV STA (14:41)
[2021-05-29] MEDS ORDERED: ACETAMINOPHEN 1,000 MG/100 ML VIAL IV STA (14:41)
--- NOTE | 2021-05-29 14:41 | Urology Consultation ---
Date of Consultation May 29, 2021 Assessment & Plan (1) Left ureteral stone: (2) Hydronephrosis: 66-year-old male with multiple comorbidities admitted for obstructing 9 mm left UVJ stone with mild hydronephrosis, hypertension and tachycardia. - Plan of care reviewed with Dr. Ludwig, urologist [facility] - Pt afebrile, nontoxic in appearance, lab work reviewed - creatinine 1.75, WBC 20.44, Lactate 4.2 - Urine and blood cultures are pending - continue IV antibiotics per primary service, follow cultures - He denies any significant pain at this time - CTAP notable for obstructing 9 mm L UVJ stone, which appears to be into bladder, mild hydronephrosis; bilateral perinephric stranding noted - Discussed options for stone management including left stent placement acutely given concern for obstructing stone and infection - Findings reviewed with Dr. Ludwig - Given his [place], leukocytosis, and elevated lactate in the context of an obstructing 9 mm left UVJ stone, will proceed with OR for cystoscopy, Left retrograde pyelogram and Left stent placement - Risks and benefits to be reviewed with patient by Dr. Ludwig. OR notified. Preoperative EKG on chart, CXR ordered. Covid-19 test pending. Will cover with IV Ciprofloxacin preoperatively - received in ED. - Patient is agreeable with the plan, all questions answered - Keep NPO for procedure today - Strain all urine - Continue IV fluids, prn analgesia, and recommend initiate Tamsulosin - Continue supportive care and medical management per primary service History of Present Illness Reason for Consultation: Left ureteral stone Requesting Physician: Dr. Zacarias Attending Physician: Dr. Zacarias History of Present Illness 66-year-old male with past medical history of uncontrolled diabetes, prostate cancer, nonalcoholic fatty liver disease, hypertension, hypercholesterolemia, prostate cancer, obstructive sleep apnea, morbid obesity, GERD, gout, and depression and anxiety admitted for an obstructing 9 mm left UVJ stone with mild hydroureteronephrosis, hypertension and tachycardia. Patient is known to our service, follows with Dr. Ludwig for prostate cancer on active surveillance. He presented to [facility] ED on 05/29/21 with severe bladder and rectal pain with urinary symptoms of frequency and difficulty emptying bladder. Afebrile on arrival. Lab work reviewed and showed Creatinine 1.75, WBC 20.44, lactate 4.2. Most recent baseline creatinine 1.17 per chart review. Urinalysis showed 5-10 WBC, 10-30 RBCs, 5-10 epithelials, 1+ bacteria. Urine culture collected and pending. CTAP without contrast obtained and notable for obstructing 9 mm calculus at the left ureteropelvic junction resulting in mild hydronephrosis; bilateral perinephric stranding noted. He had an unremarkable scrotal ultrasound, 1.5 cm right epididymal head cyst noted. He is noted to be hypertensive and tachycardic in ED. He was treated with IV Ciprofloxacin and IV fluids in the ED. He will be admitted to medicine service for further evaluation and management. Our service is consulted for left ureteral stone. Patient seen and examined in ED. He is awake and resting in litter in no acute distress. He denies flank, abdominal, or suprapubic pain. He has had intermittent nausea since last evening, no vomiting. No dysuria or hematuria. He reports urinary frequency every 15 minutes overnight with difficulty voiding. Reports sensation of incomplete emptying beginning last night. No fever or chi lls. He has not had anything to eat or drink since yesterday evening. He denies chest pain, palpitations, shortness of breath, or dizziness. Reports history of spontaneous passage of stone in the past. No prior surgical intervention for stones. No known family history of stones. No additional concerns today. Allergies Allergy/AdvReac Type Severity Reaction Status Date / Time No Known Allergies Allergy Unverified 05/29/21 11:41 Home Medications Medication Instructions Recorded Confirmed Type ukvuphj-oylebjnnivtcx-yyyoyque 250 1 tab PO Q6H PRN 03/03/20 05/29/21 History mg-250 mg-65 mg tablet (Excedrin Migraine) cholecalciferol (vitamin D3) 25 25 mcg PO DAILY 03/03/20 05/29/21 History mcg (1,000 unit) capsule (Vitamin D3) vitamin B complex 1 tab PO DAILY 03/03/20 05/29/21 History metformin 500 mg tablet,extended 1,000 mg PO BID #360 tab 04/25/20 05/29/21 Rx release 24 hr sildenafil 100 mg tablet 100 mg PO DAILY PRN #18 tab 04/25/20 05/29/21 Rx amlodipine 5 mg tablet 5 mg PO DAILY #30 tab 04/16/21 05/29/21 Rx duloxetine 60 mg capsule,delayed 60 mg PO QAM #90 cap 04/16/21 05/29/21 Rx release irbesartan 300 mg tablet 300 mg PO QAM #90 tab 05/11/21 05/29/21 Rx aspirin 81 mg tablet,delayed 81 mg PO DAILY 05/29/21 05/29/21 History release ciprofloxacin HCl 500 mg tablet 500 mg PO BID 14 Days #28 tab 05/29/21 Rx ibuprofen 200 mg tablet 200 mg PO Q6H PRN 05/29/21 05/29/21 History Patient History Medical History Acid reflux occasional; mylanta as needed Anemia Arthritis Cardiac murmur last echo > 10 years ago - does not follow w/ cardio. states "i think i outgrew it" Depression with anxiety Fatty liver disease, nonalcoholic Gastroesophageal reflux disease Gout History of colon polyps Migraines Mitral regurgitation Morbid obesity Obstructive sleep apnea BiPAP Prostate cancer no treatment - surveillance Urinary leakage Surgical History History of cataract surgery History of colonoscopy History of esophagogastroduodenoscopy (EGD) History of tonsillectomy Family History Father Slow to wake up after anesthesia Mother Slow to wake up after anesthesia Breast cancer Denies family history of Ovarian cancer Prostate cancer Myocardial infarction Colorectal cancer Social History Smoking Status: Never smoker Second Hand Exposure: No; Hx Alcohol Use: No Hx Substance Use: No Preferred Language: Turkish Communication Ability: Effective Tail Edger Required: No Beliefs That Will Affect Care: None marital status: single Current Living Situation: Family current occupational status: employed 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 Safe at Home: Yes Dental Care, Regularly: No Physical Activity Frequency: Does not Exercise Assistive Devices: Glasses Review of Systems Constitutional: as per Subjective / HPI Respiratory: as per Subjective / HPI Cardiovascular: as per Subjective / HPI Gastrointestinal: as per Subjective / HPI Genitourinary: + as per Subjective / HPI Musculoskeletal: no problem reported Integumentary: no problem reported Neurologic: no problem reported Psychiatric: no problem reported Physical Exam Constitutional: well developed, well nourished and + obese; no acute distress and not ill appearing Respiratory: normal respiratory effort and able to speak in complete sentences; no respiratory distress and no labored breathing Cardiovascular: Extremities: no pedal edema Gastrointestinal (Abdomen): Inspection/Auscultation: abdomen normal to inspection; abdomen not distended Percussion/Palpation: abdomen soft; abdomen nontender and no guarding Musculoskeletal: Head/Neck/Chest: normocephalic and head atraumatic Skin: no rashes, warm and dry Neurologic: moves all extremities and awake Psychiatric: Orientation: alert and oriented x 3 Genitourinary: no CVA tenderness Results & [facility]) Vital Signs (Past 12 Hours) Vital Signs Temp Pulse Pulse Resp BP BP Pulse Ox 05/29/21 12:30 98 05/29/21 12:00 131 H 32 H 195/109 H 96 05/29/21 11:03 99 05/29/21 11:02 126 H 32 H 215/114 H 97 05/29/21 10:49 132 H 137 H 28 H 199/116 H 199/116 H 98 05/29/21 09:16 36.8 C 124 H 20 187/111 H 98 PG Care Time/CCT Total # of Minutes Spent Total Time Spent with Patient: Total time spent is greater than 50% in coordination of care (as documented) at patient's floor/unit and/or counseling patient: Coding Level of Care Code 67119 Inpt Consult Level 4 Diagnoses Left ureteral stone N20.1 Hydronephrosis N13.30
[2021-05-29] MEDS ORDERED: ePHEDrine sulfate 50 MG/ML SYR ONE (15:15)
[2021-05-29] MEDS ORDERED: PROPOFOL IV EMULSION 10 MG/ML 20 ML VIAL IV ONE ×2 (15:15→17:22)
[2021-05-29] MEDS ORDERED: ONDANSETRON INJ 2 MG/ML 2 ML VIAL ONE (15:15)
[2021-05-29] MEDS ORDERED: LIDOCAINE 2% 2 ML VIAL/AMP(20MG/ML) INFIL ONE (15:15)
[2021-05-29] MEDS ORDERED: PHENYLEPHRINE 100MCG/ML 5ML SYR ONE (15:15)
[2021-05-29] MEDS ORDERED: MIDAZOLAM HCL 1 MG/ML 2ML VIAL ONE (15:16)
[2021-05-29] MEDS ORDERED: fentaNYL citrate 100 MCG/2 ML VIAL ONE (15:16)
--- NOTE | 2021-05-29 15:21 | Anesthesiology Consultation ---
Date of Service May 29, 2021 Assessment & Plan (1) Encounter for pre-operative examination: Chart Review Chart Review: Acceptable Risk for Surgery and Patient NOT seen in Pre Admission Testing Consults Requested none ASA [id number] Proposed Anesthesia Anesthesia Type: MAC Risk / Benefits Reviewed With: PT / POA / Parent / Guardian, Accepts Plan and Informed Consent Obtained History Surgery Operation Date: 05/29/21 08:20 Proposed Procedures p Cystoscopy, Left Stent Placement - Hiro Ludwig MD Height/Weight Height: 5 ft 8 in Weight: 121.6 kg Allergies Allergy/AdvReac Type Severity Reaction Status Date / Time No Known Allergies Allergy Unverified 05/29/21 11:41 Medications Home Medications Medication Instructions Recorded Confirmed Last Taken uzvbwds-jxnqktzrwobnj-ebgzhucf 250 1 tab PO Q6H PRN 03/03/20 05/29/21 Unknown mg-250 mg-65 mg tablet (Excedrin Migraine) cholecalciferol (vitamin D3) 25 25 mcg PO DAILY 03/03/20 05/29/21 03/07/20 mcg (1,000 unit) capsule (Vitamin D3) vitamin B complex 1 tab PO DAILY 03/03/20 05/29/21 03/07/20 metformin 500 mg tablet,extended 1,000 mg PO BID #360 tab 04/25/20 05/29/21 Unknown release 24 hr sildenafil 100 mg tablet 100 mg PO DAILY PRN #18 tab 04/25/20 05/29/21 Unknown amlodipine 5 mg tablet 5 mg PO DAILY #30 tab 04/16/21 05/29/21 Unknown duloxetine 60 mg capsule,delayed 60 mg PO QAM #90 cap 04/16/21 05/29/21 Unknown release irbesartan 300 mg tablet 300 mg PO QAM #90 tab 05/11/21 05/29/21 Unknown aspirin 81 mg tablet,delayed 81 mg PO DAILY 05/29/21 05/29/21 Unknown release ciprofloxacin HCl 500 mg tablet 500 mg PO BID 14 Days #28 tab 05/29/21 Unknown ibuprofen 200 mg tablet 200 mg PO Q6H PRN 05/29/21 05/29/21 Unknown Past Medical History Medical History Acid reflux occasional; mylanta as needed Anemia Arthritis Cardiac murmur last echo > 10 years ago - does not follow w/ cardio. states "i think i outgrew it" Depression with anxiety Fatty liver disease, nonalcoholic Gastroesophageal reflux disease Gout History of colon polyps Migraines Mitral regurgitation Morbid obesity Obstructive sleep apnea BiPAP Prostate cancer no treatment - surveillance Urinary leakage Past Family History Family History Father Slow to wake up after anesthesia Mother Slow to wake up after anesthesia Breast cancer Denies family history of Ovarian cancer Prostate cancer Myocardial infarction Colorectal cancer Past Surgical History Surgical History History of cataract surgery History of colonoscopy History of esophagogastroduodenoscopy (EGD) History of tonsillectomy Social History Smoking Status: Never smoker Hx Alcohol Use: No Hx Substance Use: No substance use type: does not use Physical Exam Vital Signs Last Vital Signs Temp 36.8 C 05/29/21 09:16 Pulse 132 H 05/29/21 16:00 Resp 22 05/29/21 16:00 BP 158/81 H 05/29/21 16:00 Pulse Ox 95 05/29/21 16:00 Testing Laboratory Results 05/29/21 12:12 05/29/21 12:12 Urine Color Yellow 05/29/21 09:29 Urine Appearance Clear (Clear) 05/29/21 09:29 Urine pH 6.0 (4.5-7.5) 05/29/21 09:29 Ur Specific [place] 1.016 (1.000-1.030) 05/29/21 09:29 Urine Protein 2+ (Negative) H 05/29/21 09:29 Urine Glucose (UA) 3+ (Negative) H 05/29/21 09:29 Urine Ketones 1+ (Negative) H 05/29/21 09:29 Urine Nitrite Negative (Negative) 05/29/21 09:29 Ur Leukocyte Esterase Negative (Negative) 05/29/21 09:29 Urine WBC (Auto) 5-10 /hpf (0-5) H 05/29/21 09:29 Urine RBC (Auto) 10-30 /hpf (0-4) H 05/29/21 09:29 U Hyaline Cast (Auto) 1-5 /lpf (0-5) 05/29/21 09:29 U Epithel Cells (Auto) 5-10 /lpf (0-5) H 05/29/21 09:29 Urine Bacteria (Auto) 1+ (Negative) H 05/29/21 09:29 Electrocardiogram Date: 05/29/21 Findings: + ST @ (127) Possible Left atrial enlargement, When compared with ECG of 31-MAR-2018 10:36, No significant change was found
--- NOTE | 2021-05-29 16:03 | XRay Report ---
XR chest 1V portable HISTORY: Preop. Left ureteral stone. COMPARISON: Chest 03/31/2018. FINDINGS: The lungs are clear. Cardiac silhouette is normal in size. No pleural effusions. No pneumot horax. IMPRESSION: No acute process. ACT 112: Negative or not required by law. Electronically signed by: Darrel Morrison M.D. 05/29/2021 4:02 PM
--- NOTE | 2021-05-29 16:31 | Electrocardiogram Report ---
Test Reason : Blood Pressure : / mmHG Vent. Rate : 127 BPM Atrial Rate : 127 BPM P-R Int : 152 ms QRS Dur : 096 ms QT Int : 300 ms P-R-T Axes : 050 069 062 degrees QTc Int : 436 ms Sinus tachycardia Possible Left atrial enlargement Borderline ECG When compared with ECG of 31-MAR-2018 10:36, No significant change was found Confirmed by Reese Corrigan ([id number]) on 05/29/2021 4:30:59 PM Referred By: REFERRED SELF Confirmed By:Reese Corrigan
[2021-05-29] MEDS ORDERED: ATROPINE SULFATE 0.1 MG/ML 10ML SYR IV PRN (16:50)
[2021-05-29] MEDS ORDERED: ONDANSETRON INJ 2 MG/ML 2 ML VIAL IV PRN ×2 (16:50→19:31)
[2021-05-29] MEDS ORDERED: fentaNYL citrate 100 MCG/2 ML VIAL IV PRN (16:50)
[2021-05-29] MEDS ORDERED: ePHEDrine sulfate 50 MG/ML AMP IV PRN (16:50)
--- NOTE | 2021-05-29 17:36 | Operative Report ---
PG Post Operative Report Pre & Post Diagnosis Operation Date: 05/29/21 08:20 Pre-Op Diagnosis: left ureteral stone Post-Op Diagnosis: left ureteral stone I identified the patient and participated in the time-out.: Yes Procedure Operation Date: 05/29/21 08:20 Actual Procedures p Cystoscopy, Left Stent Placement(Left) - Hiro Ludwig MD Surgeon Kolton Ludwig MD Professional Poker Player none Estimated Blood Loss 0 Findings Consistent with Post-Op Diagnosis Specimens none Description of Procedure The patient was identified in the preoperative holding area, appropriate informed consents were reviewed and completed and the patient was transferred to the operative suite. Upon arrival, appropriate antibiotics and anesthesia were administered and the patient was placed in dorsal lithotomy position and prepped and draped in sterile fashion. To begin the case I passed a 22 Welsh cystoscope with 30 degree lens. Inspection revealed a healthy-appearing urethra. His prostate is moderately enlarged with a high bladder neck. I was able to advance the scope into the bladder although there was limited mobility because of the angulation of his prostate. I was able to visualize the right and left ureteral orifice and there was a stone seen protruding from the left UO. Based on preoperative imaging, it appears that the majority of the stone is still within the ureter and only a small portion is seen protruding from the orifice. I did make an effort to try to basket the stone out of the ureter given its location, unfortunately I was unsuccessful with this. Instead I pushed the stone slightly retrograde and placed a 6 Welsh by 26 cm double-J stent seeing good curl in the kidney as well as the bladder. Of note, fluoroscopic evaluation did reveal the presence of the stone in the distal ureter and I believe he would be a candidate for ESWL in the future. After the stent was positioned there was good return of urine from the kidney, I emptied the bladder and concluded the case. He was reversed of anesthesia and taken to the recovery room in stable condition. There were no complications. I attest to the content of the Intraoperative Record and any orders documented therein. Any exceptions are noted below.
--- NOTE | 2021-05-29 18:06 | Anesthesiology Progress Note ---
Date of Service May 29, 2021 Anesthesia Post Procedure Vital Signs Vital Signs: Temp Pulse Pulse Resp BP BP Pulse Ox 05/29/21 17:55 113 H 26 H 151/67 H 99 05/29/21 17:45 117 H 26 H 115/69 97 05/29/21 17:38 37.3 C 120 H 22 109/65 98 05/29/21 16:30 38.1 C H 135 H 20 149/82 H 95 05/29/21 16:00 132 H 22 158/81 H 95 05/29/21 15:30 131 H 22 142/89 H 96 05/29/21 15:24 133 H 22 154/76 H 98 05/29/21 15:00 134 H 25 H 167/80 H 97 05/29/21 14:30 137 H 36 H 157/78 H 95 05/29/21 14:00 137 H 29 H 96 05/29/21 13:57 138 H 28 H 97 05/29/21 13:09 134 H 23 97 05/29/21 12:30 98 05/29/21 12:00 131 H 32 H 195/109 H 96 05/29/21 11:03 99 05/29/21 11:02 126 H 32 H 215/114 H 97 05/29/21 10:49 132 H 137 H 28 H 199/116 H 199/116 H 98 05/29/21 09:16 36.8 C 124 H 20 187/111 H 98 Transfer of Care Handoff Completed per policy Notes Mental Status: alert / awake / arousable and participated in evaluation Nausea / Vomiting: adequately controlled Pain: adequately controlled Airway Patency, RR, SpO2: stable & adequate BP & HR: stable & adequate Hydration State: stable & adequate Anesthetic Complications: no major complications apparent and Pt Satisfied with anesthetic care
--- NOTE | 2021-05-29 18:22 | Fluoroscopy Report ---
FL retrograde includes kub HISTORY: 66 years-old Male CYSTO/STENT status post placement of a left ureteral stent COMPARISON: CT abdomen and pelvis of same day TECHNIQUE: 2 spot fluoroscopic images of the left abdomen were obtained utilizing 7.1 seconds fluoros copy time FINDINGS: A left ureteral stent appears to be in satisfactory positioning. Subcentimeter round radiodensities o f the left hemipelvis redemonstrated. IMPRESSION: Fluoroscopic assistance as above. ACT 112: Negative or not required by law. The above report was generated using voice recognition software. It may contain grammatical, syntax o r spelling errors. Electronically signed by: Aldair Lozano M.D. 05/29/2021 6:20 PM
[2021-05-29] MEDS ORDERED: HYDROmorphone INJ 0.5 MG/0.5 ML SYR IV PRN (19:31)
[2021-05-29] MEDS ORDERED: CARBOHYDRATES FOR HYPOGLYCEMIA PO PRN (19:31)
[2021-05-29] MEDS ORDERED: DEXTROSE 50% 50 ML SYRINGE IV PRN (19:31)
[2021-05-29] MEDS ORDERED: CIPROFLOXACIN / D5W 400 MG/200 ML BAG IV SCH (19:31)
[2021-05-29] MEDS ORDERED: GLUCAGON FOR INJ 1 MG VIAL SQ PRN (19:31)
[2021-05-29] MEDS ORDERED: GLUCOSE 40% GEL 15 GM TUBE PO PRN (19:31)
[2021-05-29] MEDS ORDERED: GLUCOSE 10 TABS/TUBE PO PRN (19:31)
[2021-05-29] MEDS: SODIUM CHLORIDE 0.9% 1000ML 1,000 ML IV SCH (20:08)
[2021-05-29] MEDS: INSULIN ASPART 100 UNITS/ML 3 ML PEN SC SCH ×2 (20:55→21:09)
[2021-05-30] MEDS ORDERED: cefTRIAXone SODIUM 2,000 MG in DEXTROSE 5% 50 ML IV SCH ×2 (01:00→21:00)
[2021-05-30] MEDS: SODIUM CHLORIDE 0.9% 1000ML 1,000 ML IV SCH ×3 (01:53→16:09)
[2021-05-30 06:07] LABS: Basophils # (auto) 0.02 K/uL (0-0.2); Basophils % (auto) 0.1 %; Eosinophils # (auto) 0.04 K/uL (0-0.5); Eosinophils % (auto) 0.3 %; Hematocrit (blood only) 36.5 % (42-52); Hemoglobin 11.8 g/dL (14.0-18.0); Immature Granulocytes # (auto) 0.05 K/uL (0.00-0.02); Immature Granulocytes % (auto) 0.4 %; Lymphocytes # (auto) 1.17 K/uL (1.2-3.4); Lymphocytes % (auto) 8.7 %; Mean Corpuscular Hemoglobin 30.3 pg (25-34); Mean Corpuscular Hgb Conc 32.3 g/dL (32-36); Mean Corpuscular Volume 93.6 fL (80-100); Mean Platelet Volume 9.4 fL (7.4-10.4); Monocytes # (auto) 0.89 K/uL (0.11-0.59); Monocytes % (auto) 6.6 %; Neutrophils # (auto) 11.22 K/uL (1.4-6.5); Neutrophils % (auto) 83.9 %; Platelet Count 287 K/uL (130-400); RDW Standard Deviation 50.6 fL (36.4-46.3); White Blood Count 13.39 K/uL (4.8-10.8)
[2021-05-30 06:35] LABS: Calcium 7.9 mg/dl (8.5-10.1); Creatinine Clr Calc Pharmacy 65.7 ml/min; Est GFR (African American) 55.3 ml/min; Est GFR (Non-African American) 47.7 ml/min; Potassium 3.9 mmol/L (3.5-5.1)
[2021-05-30] MEDS: amLODIPine BESYLATE 5 MG TAB PO SCH (08:28)
[2021-05-30] MEDS: CHOLECALCIFEROL 1,000 UNITS 25 MCG TAB PO SCH (08:29)
[2021-05-30] MEDS: DULoxetine HCL 60 MG CAP PO SCH (08:29)
[2021-05-30] MEDS: ASPIRIN 81 MG ECTAB PO SCH (08:29)
[2021-05-30] MEDS: VITAMIN B COMPLEX TAB PO SCH (08:29)
[2021-05-30] MEDS: INSULIN ASPART 100 UNITS/ML 3 ML PEN SC SCH ×4 (08:32→20:37)
[2021-05-30] MEDS ORDERED: IRBESARTAN 150 MG TAB PO SCH (09:00)
--- NOTE | 2021-05-30 09:18 | Urology Progress Note ---
Date of Service May 30, 2021 Assessment & Plan (1) Left ureteral stone: (2) Hydronephrosis: (3) S/P ureteral stent placement: Plan: - Pt POD#1 s/p Cystoscopy, Left Stent Placement with Dr. Ludwig - Afebrile at present, febrile last night - Tmax 38.5 05/29 @2318 - Lab work reviewed and improving - creatinine 1.52, WBC 13.39 - Urine and blood cultures are pending - continue antibiotics per primary service, follow cultures - Tolerating left ureteral stent with minimal bother - Patient will need definitive stone treatment in the future after suspected infection is appropriately treated - Okay for patient to resume diet today from perspective - Continue supportive care and management per primary service - Expected clinical course reviewed, all questions answered - Will arrange outpatient follow-up with our service to discuss definitive stone management Thank you for allowing us to participate in the acute care of Mr. Plaza. Please reconsult us with additional questions, concerns or changes in patient status. Admission and Anticipated Discharge Date Admission Date: May 29, 2021 Supervising Physician Co-Signing Physician Notes Discussed patient and plan with LINNEA. Agree with above. Subjective Patient awake and sitting up in bed. Per chart review, febrile last night, Tmax 38.5 on 05/29 @2318. Denies feeling febrile or poorly overnight. Denies flank, abdominal or suprapubic pain. Voiding spontaneously without difficulty, no dysuria or hematuria. No nausea or vomiting. Denies fever or chills at present. He is currently NPO and reports dry mouth. Review of Systems Constitutional: as per Subjective / HPI Gastrointestinal: as per Subjective / HPI Genitourinary: + as per Subjective / HPI Physical Exam Constitutional: well developed, well nourished and + obese; no acute distress and not ill appearing Respiratory: normal respiratory effort and able to speak in complete sentences; no respiratory distress and no labored breathing Gastrointestinal (Abdomen): Inspection/Auscultation: abdomen normal to inspection; abdomen not distended Percussion/Palpation: abdomen soft; abdomen nontender and no guarding Musculoskeletal: Head/Neck/Chest: normocephalic and head atraumatic Skin: no rashes, warm and dry Neurologic: moves all extremities and awake Psychiatric: Orientation: alert and oriented x 3 Genitourinary: no CVA tenderness Results & Data ([facility]) Vital Signs (Past 12 Hours) Vital Signs Temp Pulse Pulse Resp BP BP Pulse Ox 05/30/21 09:03 102 H 05/30/21 06:47 37.6 C H 102 H 20 128/68 98 05/30/21 04:15 37.0 C 112 H 22 158/75 H 96 05/30/21 02:06 129 H 05/29/21 23:18 38.5 C H 126 H 24 136/71 93 05/29/21 21:22 26 H 05/29/21 21:18 127 H PG Care Time/CCT Total # of Minutes Spent Total Time Spent with Patient: Total time spent is greater than 50% in coordination of care (as documented) at patient's floor/unit and/or counseling patient: Coding Level of Care Code 08533 Subseq Hosp Care Lvl 2 Diagnoses Left ureteral stone N20.1 Hydronephrosis N13.30 S/P ureteral stent placement Z96.0
[2021-05-30] MEDS: ACETAMINOPHEN 1,000 MG/100 ML VIAL IV PRN ×2 (10:02→19:38)
[2021-05-30] MEDS ORDERED: VANCOMYCIN CONSULT ACTIVE PRN (10:04)
[2021-05-30] MEDS ORDERED: VANCOMYCIN HCL 2,500 MG in SODIUM CHLORIDE 0.9% 500 ML IV ONE (10:45)
--- NOTE | 2021-05-30 10:50 | Pharmacy Report ---
Pharmacy Vanc AUC Short Note - Date of Service May 30, 2021 - Assessment & Plan Assessment 66 year old M receiving Vancomycin, Ceftriaxone for treatment of urosepsis. Pertinent microbiologic data includes: 1/2 blood cultures growing GPC. Day # 1 of antimicrobial therapy. Plan Vancomycin * AUC/ARELY is the preferred PK/PD target for vancomycin * AUC guided dosing is effective and associated with decreased risk of nephrotoxicity compared to traditional trough targets * Loading dose of Vancomycin 2500mg for 1 dose * Maintenance dose of 1500mg q24h * Cr 1.52 (baseline of 1.18), will reevaluate Cr in AM before ordering trough Pharmacy will continue to follow and will adjust dose/frequency as necessary. Thank you.
--- NOTE | 2021-05-30 11:26 | XRay Report ---
XR KUB/Abdomen 1 view INDICATION: MN ^left ureteral stone ^prior to discharge. TECHNIQUE: 1 view of the abdomen was obtained. Comparison: Comparison is made to CT abdomen and pelvis 05/29/2021 FINDINGS: A double-J stent is seen on the left. Phleboliths are seen in the pelvis, a stone seen in the bladder , as in prior CT, is excluded. The osseous structures are grossly unremarkable. The bowel gas pattern is nonobstructive. A moderate amount of stool is noted within the large bowel. IMPRESSION: No nephrolithiasis is seen. A stone in the bladder cannot be excluded. ACT 112: Negative or not required by law. Electronically signed by: Anastacio Holly M.D. 05/30/2021 11:25 AM
--- NOTE | 2021-05-30 13:20 | Hospitalist Progress Note ---
Date of Service May 30, 2021 Assessment & Plan (1) Sepsis syndrome: Plan: * sepsis syndrome: tachycardia (140), fever (101.3), Leukocytosis (20K with left shift) and lactic acidosis (4.2). NO EVIDENCE OF SEPTIC SHOCK * patient admitted with sepsis syndrome thought to be related to obstructive uropathy/UTI * patient was noted to have an obstructing strong in the left UVJ and is s/p stenting; however, his urine is not grossly infected * 1/4 tubes (blood cultures) showing GBP in clumps. Rest of them are pending. uncertain is this is real or contaminate. * Patient empirically on rocephin for presumed urine as the cause of his sepsis syndrome. * Again, UA not grossly infected. Will await final culture data * although patient does seem to be responding (WBC downtrending-- 13K today, tachycardia resolving--102 at present and his lactic acidemia resolved), he is still having fever spikes. Will broaden abx coverage (to include MRSA) until rest of blood cultures back. Can de-escalated based on rest of cultures and clinical improvement (2) Nephrolithiasis: Plan: * s/p cystoscopy with left retrograde pyelogram and stent placement * Pain adequately controlled * Urology on boardappreciate recommendations * Plan is for ESWL as an outpatient (3) Hypertension: Plan: * BP stable (actually slightly elevated) without evidence of septic shock * Patient on amlodipine and irbesartan as an outpatient, can continue these p.o. for now I will dose the morning (4) Non-alcoholic fatty liver disease: Plan: Continue to monitor, no signs of liver failure (5) Obstructive sleep apnea: Plan: * CPAP ordered (6) Diabetes mellitus: Plan: * Patient with hyperglycemia * Metformin on hold (given lactic acidemiawhich has since now resolved) * Will add basal insulin and tighten sliding scale coverage * A1c to assess control Admission and Anticipated Discharge Date Admission Date: May 29, 2021 Subjective Patient seen on daily rounds today. 66 y/o WF with h/o SILVA, HTN. GERD, NIDDM, and CHANDRA. Hospitalized yesterday with Sepsis syndrome d/t obstructive uropathy. Was tachycardic (140). Leukocytosis (20K) with left shift, fever of 101.3 and lactic acidosis (4.2) Despite sepsis syndrome, urinalysis was not grossly infected. His CT of the abdomen and pelvis did show left-sided hydronephrosis with a 9 mm obstructing calculus in the UVJ Thus far, 1/4 Blood cultures are showing GPB in clusters. Patient did have a cystoscopy with left retrograde pyelogram and stent placement in the overnight hours. He is on empiric IV antibiotic therapy (Rocephin) and has received aggressive IV hydration. Tachycardia has since resolved. His white blood cell count is downtrending and is 13.39. Lactic acidemia has resolved and is currently 1.6. Patient has remained hemodynamically stable. Currently feels well. Denies fevers, chills, chest pain, shortness of breath, abdominal pain, nausea, vomiting, GI/ symptomatology. No obvious skin lesions or rashes. Denies significant discomfort from stent placement. Only complaint is mild dysuria that is new since having cystoscopy. Nurse reporting issues with BC (200-300 range). Patient takes metformin which is currently on hold. Is receiving NovoLog with correction dosing for sliding scale. Review of Systems Review of Systems: All systems reviewed and are unremarkable except as noted in HPI and below Denies fevers, chills, headache, nasal congestion, sore throat, cough, chest pain, shortness of breath, abdominal pain, nausea, vomiting, dysuria, hematuria, frequency, skin lesions or rashes. Physical Exam Physical Exam: General: Resting comfortably in his hospital bed. Does not appear ill or toxic. NAD. Neck: No JVD. Negative hepatojugular reflex Cardiac: RRR with 2/6 to 3/6 BILLIE heard best at the right sternal border at the base Lungs: CTA without W/R/R Abdomen: Normoactive X4. Soft and nontender in all quadrants. No CVA tenderness Extremities: No peripheral clubbing cyanosis or edema Neuro: A&O X4 cranial nerves II through XII are grossly intact no focal neuro deficits Skin: No obvious skin lesions or rashes Results & Data Results & Data ([facility]) Vital Signs (Past 12 Hours) Vital Signs Temp Pulse Pulse Resp BP BP Pulse Ox 05/30/21 11:35 37.6 C H 102 H 16 149/72 H 95 05/30/21 09:33 102 H 05/30/21 09:03 102 H 05/30/21 06:47 37.6 C H 102 H 20 128/68 98 05/30/21 04:15 37.0 C 112 H 22 158/75 H 96 05/30/21 02:06 129 H Laboratory Results 05/30/21 05:48 05/30/21 05:48 PG Care Time/CCT Total # of Minutes Spent Total Time Spent with Patient: Total time spent is greater than 50% in coordination of care (as documented) at patient's floor/unit and/or counseling patient: Coding [place] [address] Subseq Hosp Care Lvl 3 Patient Type Established History Detailed Exam Detailed Medical Decision Making Moderate Complexity Diagnoses Nephrolithiasis N20.0 Hypertension I10 Non-alcoholic fatty liver disease K76.0 Obstructive sleep apnea G47.33 Diabetes mellitus E11.9 Sepsis syndrome
[2021-05-30 14:31] LABS: Estimated Average Glucose 226 mg/dl; Hemoglobin A1C 9.5 % (4.5-5.6)
[2021-05-30] MEDS: INSULIN GLARGINE SOLOSTAR 100 UNITS/ML 3 ML PEN SC SCH (20:36)
--- NOTE | 2021-05-31 04:27 | Communication Note ---
Date of Service: May 31, 2021 Subjective: Nursing notified that the patient was having chest pain. Patient explained that they had minor 1-2/10 chest pain/shoulder pain that radiated to his back. He has never had pain like this prior. He was noting that he had worsening of the pain with breathing.No associated shortness of breath. The pain has been going on starting at 3AM. Objective: HR 89 BP 154/83 Chest: no pain on palpation over the area of pain Back: no pain on palpation of the back Cardiac: RRR, no m/r/g pulm.: lungs CTAB A/P: 66 yo M w/ DM, obesity, HTN, CHANDRA with chest pain likely MSK in nature - Troponin ordered - EKG without ST elevation or T wave changes - Tylenol given
[2021-05-31] MEDS: ACETAMINOPHEN 1,000 MG/100 ML VIAL IV PRN (04:29)
[2021-05-31] MEDS: SODIUM CHLORIDE 0.9% 1000ML 1,000 ML IV SCH ×2 (04:49→21:14)
[2021-05-31 04:56] LABS: Basophils # (auto) 0.03 K/uL (0-0.2); Basophils % (auto) 0.3 %; Eosinophils # (auto) 0.23 K/uL (0-0.5); Eosinophils % (auto) 2.5 %; Hematocrit (blood only) 36.1 % (42-52); Hemoglobin 11.6 g/dL (14.0-18.0); Immature Granulocytes # (auto) 0.03 K/uL (0.00-0.02); Immature Granulocytes % (auto) 0.3 %; Lymphocytes # (auto) 1.75 K/uL (1.2-3.4); Lymphocytes % (auto) 19.1 %; Mean Corpuscular Hemoglobin 30.4 pg (25-34); Mean Corpuscular Hgb Conc 32.1 g/dL (32-36); Mean Corpuscular Volume 94.5 fL (80-100); Mean Platelet Volume 9.2 fL (7.4-10.4); Monocytes # (auto) 0.87 K/uL (0.11-0.59); Monocytes % (auto) 9.5 %; Neutrophils # (auto) 6.24 K/uL (1.4-6.5); Neutrophils % (auto) 68.3 %; Platelet Count 245 K/uL (130-400); RDW Coefficient of Variation 14.8 % (11.5-14.5); RDW Standard Deviation 50.8 fL (36.4-46.3); Red Blood Count 3.82 M/uL (4.7-6.1); White Blood Count 9.15 K/uL (4.8-10.8)
[2021-05-31 05:14] LABS: Blood Urea Nitrogen 12 mg/dl (7-18); Calcium 7.8 mg/dl (8.5-10.1); Carbon Dioxide 27 mmol/L (21-32); Chloride 107 mmol/L (98-107); Creatinine Clr Calc Pharmacy 88.4 ml/min; Est GFR (African American) 79.2 ml/min; Est GFR (Non-African American) 68.3 ml/min; Glucose 212 mg/dl (70-99); Potassium 3.8 mmol/L (3.5-5.1); Sodium 139 mmol/L (136-145)
[2021-05-31 05:19] LABS: Troponin I < 0.015 ng/ml (0-0.045)
[2021-05-31] MEDS: INSULIN ASPART 100 UNITS/ML 3 ML PEN SC SCH ×4 (08:34→21:15)
[2021-05-31] MEDS: ASPIRIN 81 MG ECTAB PO SCH (08:35)
[2021-05-31] MEDS: CHOLECALCIFEROL 1,000 UNITS 25 MCG TAB PO SCH (08:35)
[2021-05-31] MEDS: DULoxetine HCL 60 MG CAP PO SCH (08:35)
[2021-05-31] MEDS: amLODIPine BESYLATE 5 MG TAB PO SCH (08:35)
[2021-05-31] MEDS: VITAMIN B COMPLEX TAB PO SCH (08:35)
[2021-05-31] MEDS: INSULIN GLARGINE SOLOSTAR 100 UNITS/ML 3 ML PEN SC SCH (08:35)
[2021-05-31] MEDS: VANCOMYCIN HCL 1,500 MG in SODIUM CHLORIDE 0.9% 500 ML IV SCH (08:38)
--- NOTE | 2021-05-31 10:25 | Hospitalist Progress Note ---
Date of Service May 31, 2021 Assessment & Plan (1) Sepsis syndrome: Plan: * sepsis syndrome: tachycardia (140), fever (101.3), Leukocytosis (20K with left shift) and lactic acidosis (4.2). NO EVIDENCE OF SEPTIC SHOCK. Sepsis syndrome has since resolved * urine culture and blood cultures both showing Growth of staphfinal culture data pending * patient is s/p left ureteral stent still with retained stone * spoke with urology: stone can not be treated until infection clear * patient remains on Rocephin/Vanco * although all seems gram + and related to staph-- final culture data pending. Will hold off on de-escalation until Final culture back to ensure not polymi crobial * given staph in urine, I assume that this is also staph in the blood * given risk of migration with staph-- echo obtained to julia for vegetation * in addition, given risk of staph migratory infection-- I believe 2 weeks if IV abx therapy would be best option; however, unsure if length of time needs lengthened given retained stone (ideally would start 2 weeks after stone removed). Patient does have a stent so it is not longer obstructing. Will consult ID-- appreciate recommendations (2) Nephrolithiasis: Plan: * s/p cystoscopy with left retrograde pyelogram and stent placement * Pain adequately controlled * Urology on boardappreciate recommendations * Plan is for ESWL as an outpatient (3) Hypertension: Plan: * BP stable (actually slightly elevated) without evidence of septic shock * Patient on amlodipine. Takes Toprol which was held upfront. Okay to resume this * Clonidine as needed (4) Non-alcoholic fatty liver disease: Plan: Continue to monitor, no signs of liver failure (5) Obstructive sleep apnea: Plan: * CPAP ordered (6) Diabetes mellitus: Plan: * Patient with hyperglycemia * Metformin on hold (given lactic acidemiawhich has since now resolved) * A1C obtained nd elevated at 9.5% * recommend half-way insulin (uptitrate lantus and convert to once daily dosing for added compliance as an OP) * consult nurse informatics educator to educate on self injections * Lengthy discussion with patient regarding importance of good glycemic control Admission and Anticipated Discharge Date Admission Date: May 29, 2021 Subjective Patient seen on daily rounds today. Vocalizes no complaints or concerns. Blood cultures and urine culture are showing growth of staph. Final culture data is pending. Otherwise, patient feels well. He has since defervesced. His white blood cell count is downtrending. He denies fevers, chills, chest pain, shortness of breath, abdominal pain, nausea or vomiting. No discomfort from ureteral stent. Denies dysuria, hematuria, frequency. Review of Systems Review of Systems: All systems reviewed and are unremarkable except as noted in HPI and below Denies fevers, chills, headache, nasal congestion, sore throat, cough, chest pain, shortness of breath, palpitations, orthopnea, PND, abdominal pain, nausea, vomiting, diarrhea, constipation, dysuria, hematuria, frequency, back pain, joint pain or swelling, easy bruising or blooding, skin lesions or rashes. Physical Exam Physical Exam: General: Resting comfortably in his hospital bed. NAD. HEENT: Head is AT/NC buccal mucosa is moist and pink Neck: No JVD. Negative hepatojugular reflex Cardiac: RRR with 2/6 to 3/6 BILLIE Lungs: CTA without W/R/R Abdomen: Normoactive X4. Soft and nontender in all quadrants. Extremities: No peripheral clubbing cyanosis or edema Neuro: A&O X4 cranial nerves II through XII are grossly intact no focal neuro deficits Skin: No obvious skin lesions or rashes Psych: Appropriate affect pleasant and cooperative Results & Data Results & Data ([facility]) Vital Signs (Past 12 Hours) Vital Signs Temp Pulse Pulse Resp BP Pulse Ox 05/31/21 06:58 36.7 C 78 20 145/80 H 94 05/31/21 05:37 90 05/31/21 03:56 37 C 89 18 154/83 H 95 05/31/21 00:28 36.8 C 85 18 123/79 94 PG Care Time/CCT Total # of Minutes Spent Total Time Spent with Patient: Total time spent is greater than 50% in coordination of care (as documented) at patient's floor/unit and/or counseling patient: Coding [place] [address] Subseq Hosp Care Lvl 3 Patient Type Established History Comprehensive Exam Comprehensive Medical Decision Making High Complexity Diagnoses Sepsis syndrome Nephrolithiasis N20.0 Hypertension I10 Non-alcoholic fatty liver disease K76.0 Obstructive sleep apnea G47.33 Diabetes mellitus E11.9
[2021-05-31] MEDS ORDERED: cloNIDine HCL 0.1 MG TAB PO PRN (15:11)
--- NOTE | 2021-05-31 19:41 | XCELERA ---
[id number]
[2021-05-31] MEDS ORDERED: INSULIN GLARGINE SOLOSTAR 100 UNITS/ML 3 ML PEN SC SCH (21:00)
--- NOTE | 2021-06-01 06:15 | Electrocardiogram Report ---
Test Reason : Blood Pressure : / mmHG Vent. Rate : 088 BPM Atrial Rate : 088 BPM P-R Int : 156 ms QRS Dur : 096 ms QT Int : 356 ms P-R-T Axes : 057 070 042 degrees QTc Int : 430 ms Normal sinus rhythm Normal ECG When compared with ECG of 29-MAY-2021 11:01, No significant change was found Confirmed by Lonnie Urrutia ([id number]) on 06/01/2021 6:15:44 AM Referred By: REFERRED SELF Confirmed By:Lonnie Urrutia
[2021-06-01 08:38] LABS: Albumin Globulin Ratio 0.8 (0.9-2); BUN Creatinine Ratio 11.5 (10-20); Bilirubin,Total 0.5 mg/dl (0.2-1); Creatinine Clr Calc Pharmacy 89.2 ml/min; Magnesium 1.8 mg/dl (1.8-2.4); Potassium 3.9 mmol/L (3.5-5.1)
[2021-06-01] MEDS: SODIUM CHLORIDE 0.9% 1000ML 1,000 ML IV SCH (09:04)
[2021-06-01] MEDS: VANCOMYCIN HCL 1,500 MG in SODIUM CHLORIDE 0.9% 500 ML IV SCH (09:04)
[2021-06-01] MEDS: INSULIN ASPART 100 UNITS/ML 3 ML PEN SC SCH ×4 (09:09→20:29)
[2021-06-01] MEDS: CHOLECALCIFEROL 1,000 UNITS 25 MCG TAB PO SCH (09:11)
[2021-06-01] MEDS: VITAMIN B COMPLEX TAB PO SCH (09:11)
[2021-06-01] MEDS: amLODIPine BESYLATE 5 MG TAB PO SCH (09:11)
[2021-06-01] MEDS: IRBESARTAN 150 MG TAB PO SCH (09:11)
[2021-06-01] MEDS: ASPIRIN 81 MG ECTAB PO SCH (09:11)
[2021-06-01] MEDS: DULoxetine HCL 60 MG CAP PO SCH (09:11)
[2021-06-01 10:30] LABS: Basophils # (auto) 0.03 K/uL (0-0.2); Basophils % (auto) 0.3 %; Eosinophils # (auto) 0.31 K/uL (0-0.5); Eosinophils % (auto) 2.7 %; Hematocrit (blood only) 37.5 % (42-52); Hemoglobin 12.2 g/dL (14.0-18.0); Immature Granulocytes # (auto) 0.04 K/uL (0.00-0.02); Immature Granulocytes % (auto) 0.4 %; Lymphocytes # (auto) 2.08 K/uL (1.2-3.4); Lymphocytes % (auto) 18.4 %; Mean Corpuscular Hemoglobin 30.2 pg (25-34); Mean Corpuscular Hgb Conc 32.5 g/dL (32-36); Mean Corpuscular Volume 92.8 fL (80-100); Mean Platelet Volume 9.9 fL (7.4-10.4); Monocytes # (auto) 0.82 K/uL (0.11-0.59); Monocytes % (auto) 7.2 %; Neutrophils # (auto) 8.04 K/uL (1.4-6.5); Platelet Count 302 K/uL (130-400); RDW Coefficient of Variation 14.9 % (11.5-14.5); RDW Standard Deviation 50.6 fL (36.4-46.3); Red Blood Count 4.04 M/uL (4.7-6.1); White Blood Count 11.32 K/uL (4.8-10.8)
--- NOTE | 2021-06-01 14:41 | Pharmacy Report ---
Pharmacy Abx Dose Short Note - Date of Service June 01, 2021 - Assessment & Plan Assessment 66 year old M receiving Vancomycin for treatment of urosepsis. * Pertinent microbiologic data includes: oxacillin resistant CONS + staph species in 2/2 BC, oxacillin resistant CONS in urine * Today is day #3 of vancomycin. Plan is for patient to be discharged on vancomycin to complete a 14 day course (q12 or q24 hour regimen preferred). Plan Vancomycin * Current dose = 1500 mg IV q24h * With improvement in renal function, I anticipate this dose will be subtherapeutic. I have ordered a random level this afternoon to ensure adequate dosing and assist in calculating outpatient dosing. * Goal AUC/ARELY: 400-600 * AUC/ARELY is the preferred PK/PD target for vancomycin * AUC guided dosing is effective and associated with decreased risk of nephrotoxicity compared to traditional trough targets Discharge Recommendations: * Once target trough (or AUC) has been achieved on two consecutive level draws, obtain trough level at least once weekly (more frequent monitoring should be considered with changing renal function/worsening clinical status) * Scr at least twice weekly for week 1, then weekly (more frequent monitoring should be considered with changing renal function/worsening clinical status) * may consider CBC weekly Pharmacy will continue to follow and will adjust dose/frequency as necessary. Thank you.
--- NOTE | 2021-06-01 15:23 | Hospitalist Progress Note ---
Date of Service June 01, 2021 Assessment & Plan (1) Sepsis syndrome: Plan: * sepsis syndrome: initially with tachycardia (140), fever (101.3), Leukocytosis (20K with left shift) and lactic acidosis (4.2). NO EVIDENCE OF SEPTIC SHOCK. Sepsis syndrome has since resolved * Secondary to UTI with bacteremiacoag negative staph species with multidrug resistance * patient is s/p left ureteral stent still with retained stone * spoke with urology: stone can not be treated until infection clear; however, I am uncertain if this retained stones will cause need for prolonged antibiotic therapy as typically treatment is for 2 weeks (after removal of stent/stone). I have consulted ID to help guide at length of treatment. Appreciate recommendations. At any rate, day #1 would be when vancomycin trough therapeutic * on rocephin and vancomycin empirically upfront. De-escalate to vancomycin based on culture data. Spoke with pharmacy who is managing vancomycin. [place] trough is between 15 and 20. For trough level today. Would be more cost ef fective to use vancomycin if we can get his trough therapeutic; however, given his weight and renal functionmay not be therapeutic even with max dosing. If that is the case, would then need to transition to daptomycin (which unfortunately would be more expensive). I have discussed all of this with case management who is checking to see if patient has home coverage or if patient will need placement for IV antibiotic therapy upon discharge * given risk of migration with staph-- echo obtained and negative for obvious vegetation. If clinical decline, would proceed with JENNIFER; however, no need if patient continues to respond favorably (2) Bacteremia: Plan: * See above as outlined (3) UTI (urinary tract infection): Plan: * See above as outlined (4) Nephrolithiasis: Plan: * s/p cystoscopy with left retrograde pyelogram and stent placement (on 05/29) * Pain adequately controlled * Urology on boardappreciate recommendations * Plan is for ESWL as an outpatient (5) Hypertension: Plan: * on norvasc and avapro (as prior to hospitalization) * BP actually high-- pt reports is stressed with given events * Clonidine as needed (6) Non-alcoholic fatty liver disease: Plan: Continue to monitor, no signs of liver failure (7) Obstructive sleep apnea: Plan: * CPAP ordered (8) Diabetes mellitus: Plan: * Patient with hyperglycemia * Metformin on hold (given lactic acidemiawhich has since now resolved) * A1C obtained and elevated at 9.5% * recommend shelter insulin (continue to uptitrate) * consult informatics educator to educate on self injections * Lengthy discussion with patient regarding importance of good glycemic control Plan: Plan of care discussed with Dr. Bennett. Further orders as warranted. Admission and Anticipated Discharge Date Admission Date: May 29, 2021 Subjective Patient seen on daily rounds today. Overall feeling well. Denies fevers, chills, chest pain, shortness of breath, abdominal pain, nausea or vomiting. L ittle complaint with the stent in place. Denies any flank pain, dysuria, hematuria or frequency. Remains on Rocephin/vancomycin. Culture data is coming back showing coag negative staph species in both bladder and urinemultidrug-resistant Repeat blood cultures drawn this morning (since being on vancomycin X 48 hours) Vancomycin trough due today-- pharmacy on board to help manage for ID consult today as patient will need at least 2 weeks of IV abx therapy given staph bacteremia; but my concern is that he may need more a prolonged course given the retained stone in the left ureter (s/p stent insertion) Review of Systems Review of Systems: All systems reviewed and are unremarkable except as noted in HPI and below Denies fevers, chills, headache, nasal congestion, sore throat, cough, chest keyanna n, shortness of breath, palpitations, orthopnea, PND, abdominal pain, nausea, vomiting, diarrhea, constipation, dysuria, hematuria, frequency, back pain, joint pain or swelling, easy bruising or blooding, skin lesions or rashes. Physical Exam Physical Exam: General: Resting comfortably in his hospital bed. Does not appear ill or toxic. NAD. HEENT: Head is AT/NC buccal mucosa is moist and pink Neck: No JVD. Negative hepatojugular reflex Cardiac: RRR with 2/6 to 3/6 BILLIE Lungs: CTA without W/R/R Abdomen: Normoactive X4. Soft and nontender in all quadrants. No CVA tenderness Extremities: No peripheral clubbing cyanosis or edema Neuro: A&O X4 cranial nerves II through XII are grossly intact no focal neuro deficits Skin: No obvious skin lesions or rashes Psych: Appropriate affect pleasant and cooperative Results & Data Results & Data ([facility]) Vital Signs (Past 12 Hours) Vital Signs Temp Pulse Pulse Resp BP BP Pulse Ox 06/01/21 11:43 37.3 C 93 H 18 168/77 H 96 06/01/21 09:29 76 06/01/21 07:20 37.3 C 95 H 18 167/97 H 92 06/01/21 04:37 85 06/01/21 03:27 36.9 C 84 20 156/92 H 93 Laboratory Results 06/01/21 07:34 06/01/21 07:34 Blood Culture Aerobic Preliminary 06/01/21-728 Organism 1 Coag neg staph not lugdunensis Sens Sensitivities to Follow Organism 2 Staphylococcus species Sens Sensitivities to Follow CNSnl RX M.I.C. --- --------- Clindamycin S <=0.5 Daptomycin S <=0.5 Erythromycin R >4 Oxacillin R >2 Tetracycline S <=4 Trimeth/Sulfa R >2/38 Vancomycin S 2 Urine culture: Org 1 = Coag negative Staphylococcus Collected: 05/29/21 09:29 Source: Urine,Clean Catch ANTIBIOTIC ORG 1 Daptomycin S Nitrofurantoin S Oxacillin R Tetracycline S Trimethoprim/Sulfamethoxazole R Vancomycin S PG Care Time/CCT Total # of Minutes Spent Total Time Spent with Patient: Total time spent is greater than 50% in coordination of care (as documented) at patient's floor/unit and/or counseling patient: C[place] [address] Subseq Hosp Care Lvl 3 Patient Type Established History Detailed Exam Detailed Medical Decision Making High Complexity Diagnoses Sepsis syndrome Nephrolithiasis N20.0 Hypertension I10 Non-alcoholic fatty liver disease K76.0 Obstructive sleep apnea G47.33 Diabetes mellitus E11.9 Bacteremia R78.81 UTI (urinary tract infection) N39.0
[2021-06-01] MEDS: ACETAMINOPHEN 1,000 MG/100 ML VIAL IV PRN (19:23)
[2021-06-01] MEDS: INSULIN GLARGINE SOLOSTAR 100 UNITS/ML 3 ML PEN SC SCH (20:28)
[2021-06-01] MEDS: VANCOMYCIN HCL 1,000 MG in SODIUM CHLORIDE 0.9% 250 ML IV SCH (21:29)
[2021-06-01] MEDS ORDERED: VANCOMYCIN TROUGH ONE (21:30)
[2021-06-02 07:04] LABS: Basophils # (auto) 0.05 K/uL (0-0.2); Basophils % (auto) 0.5 %; Eosinophils # (auto) 0.32 K/uL (0-0.5); Eosinophils % (auto) 3.3 %; Hemoglobin 11.9 g/dL (14.0-18.0); Immature Granulocytes # (auto) 0.04 K/uL (0.00-0.02); Immature Granulocytes % (auto) 0.4 %; Lymphocytes # (auto) 1.66 K/uL (1.2-3.4); Mean Corpuscular Hemoglobin 30.7 pg (25-34); Mean Corpuscular Hgb Conc 33.1 g/dL (32-36); Mean Corpuscular Volume 92.8 fL (80-100); Mean Platelet Volume 9.6 fL (7.4-10.4); Monocytes # (auto) 0.84 K/uL (0.11-0.59); Monocytes % (auto) 8.6 %; Neutrophils # (auto) 6.83 K/uL (1.4-6.5); Neutrophils % (auto) 70.2 %; Platelet Count 325 K/uL (130-400); RDW Coefficient of Variation 14.5 % (11.5-14.5); RDW Standard Deviation 48.9 fL (36.4-46.3); Red Blood Count 3.88 M/uL (4.7-6.1); White Blood Count 9.74 K/uL (4.8-10.8)
[2021-06-02 07:25] LABS: Albumin Level 2.9 gm/dl (3.4-5.0); BUN Creatinine Ratio 12.7 (10-20); Calcium 8.9 mg/dl (8.5-10.1); Creatinine Clr Calc Pharmacy 103.2 ml/min; Est GFR (African American) 95.2 ml/min; Est GFR (Non-African American) 82.2 ml/min; Magnesium 1.8 mg/dl (1.8-2.4); Potassium 3.8 mmol/L (3.5-5.1)
[2021-06-02 07:28] LABS: Albumin Globulin Ratio 0.8 (0.9-2); Bilirubin,Total 0.7 mg/dl (0.2-1); Globulin 3.8 gm/dl (2.5-4.0); Total Protein 6.7 gm/dl (6.4-8.2)
[2021-06-02] MEDS: VITAMIN B COMPLEX TAB PO SCH (08:21)
[2021-06-02] MEDS: IRBESARTAN 150 MG TAB PO SCH (08:21)
[2021-06-02] MEDS: ASPIRIN 81 MG ECTAB PO SCH (08:21)
[2021-06-02] MEDS: amLODIPine BESYLATE 5 MG TAB PO SCH (08:21)
[2021-06-02] MEDS: CHOLECALCIFEROL 1,000 UNITS 25 MCG TAB PO SCH (08:21)
[2021-06-02] MEDS: DULoxetine HCL 60 MG CAP PO SCH (08:21)
[2021-06-02] MEDS: INSULIN ASPART 100 UNITS/ML 3 ML PEN SC SCH ×4 (08:24→20:21)
[2021-06-02] MEDS ORDERED: amLODIPine BESYLATE 5 MG TAB PO ONE (08:45)
[2021-06-02] MEDS: VANCOMYCIN HCL 1,000 MG in SODIUM CHLORIDE 0.9% 250 ML IV SCH ×2 (09:20→20:15)
[2021-06-02] MEDS ORDERED: KETOROLAC 30 MG/ML VIAL IV ONE (09:26)
--- NOTE | 2021-06-02 09:38 | Pharmacy Report ---
Pharmacy Vanc AUC Short Note - Date of Service June 01, 2021 - Assessment & Plan Assessment 66 year old M receiving IV Vancomycin for treatment of bacteremia. Day # 3 of antimicrobial therapy. Plan is for patient to be discharged on vancomycin to complete a 14 day course * Patient had been receiving Vancomycin 1500mg q24 with last dose on 06/01 @ ~0900 * Random level on 06/01 @ 1444 was 8.2 mg/dL, which is subtherapeutic * Renal function continues to improve * Patient needs more frequent Vancomycin dosing to achieve therapeutic concentrations. q12 regimen is preferred for outpatient dosing. Plan Vancomycin * AUC/ARELY is the preferred PK/PD target for vancomycin * AUC guided dosing is effective and associated with decreased risk of nephrotoxicity compared to traditional trough targets * According to [employer], Vancomycin regimen of 1000mg IV q12 will result in trough level of 16.5 mcg/mL to achieve target AUC/ARELY of 400-600 mg/L.hr and may be associated with a 12 % risk of nephrotoxicity * Trough level ordered for: 06/03/21 @ 0830 to confirm predicted pharmacokinetics Pharmacy will continue to follow and will adjust dose/frequency as necessary. Thank you. Discharge Recommendations: * Once target trough (or AUC) has been achieved on two consecutive level draws, obtain trough level at least once weekly (more frequent monitoring should be considered with changing renal function/worsening clinical status) * Scr at least twice weekly for week 1, then weekly (more frequent monitoring should be considered with changing renal function/worsening clinical status) * may consider CBC weekly
[2021-06-02] MEDS: ACETAMINOPHEN 325 MG TAB PO PRN ×2 (09:39→19:57)
--- NOTE | 2021-06-02 10:50 | Hospitalist Progress Note ---
Date of Service June 02, 2021 Assessment & Plan (1) Bacteremia: Plan: * CoNS with MDR from UTI (as growing in both urine and blood) * sensitive to Vanco/Dapto and tetracyclines * will use IV abx x 2 weeks given risk of Staph species to migrate--> currently on Vanco 1G IV q12h with FU trough tomorrow (goal being 15-20). Day #1 of abx to start once therapeutic * echo done showing no evidence of vegetation * I did discuss with ID regarding length of treatment. Typically, would require IV abx therapy x 2 weeks for bacteremia; however this is more complicated given retained stone/stent ( 9mm obstructing stone in left UJV on presentation with stent placed 05/29). Typically, recommendations as for treatment for 2 wee ks AFTER REMOVAL of stone and stent. Urology on board and planning on ESWL as an OP infection infection cleared. ID is recommending IV abx therapy x2 weeks and then conversion to ORAL abx therapy (would use Doxycycline based on culture data) and continue this until 3 days AFTER STENT REMOVAL * will add probiotic to reduce risk of Cdiff. * will need midline (preferred over PICC given location of termination and risk of migratory infection) for 2 weeks of IV abx therapy. Repeat blood cultures drawn. Will plan to proceed with PICC once blood cultures proven clearance of bacteremia. Currently NGTD. Consent obtained (2) UTI (urinary tract infection): Plan: * See above as outlined (3) Sepsis syndrome: Plan: * sepsis syndrome has since resolved: initially with tachycardia (140), fever (101.3), Leukocytosis (20K with left shift) and lactic acidosis (4.2). NO EVIDENCE OF SEPTIC SHOCK. Sepsis syndrome has since resolved (4) Nephrolithiasis: Plan: * s/p cystoscopy with left retrograde pyelogram and stent placement (on 05/29) * Pain adequately controlled * Urology on boardappreciate recommendations * Plan is for ESWL as an outpatient (5) Hypertension: Plan: * on norvasc and avapro (as prior to hospitalization) * BP slightly accelerated and now with an associated SCHMIDT * increase norvasc to 10mg * Clonidine as needed * 1 dose of toradal for SCHMIDT as Unrelieved with APAP (6) Non-alcoholic fatty liver disease: Plan: Continue to monitor, no signs of liver failure (7) Obstructive sleep apnea: Plan: * CPAP ordered (8) Diabetes mellitus: Plan: * Patient with hyperglycemia initially * Metformin on hold up front (given lactic acidemiawhich has since now re solved). Okay to resume this now * A1C obtained and elevated at 9.5% * recommend alf insulin. FBS currently acceptable at 140 (basal just increased lastnight). Continue uptitration as needed * unit educator has met with patient to educate on self injections * Lengthy discussion with patient regarding importance of good glycemic control Plan: Plan of care discussed with Dr. Bennett. Further orders as warranted. Admission and Anticipated Discharge Date Admission Date: May 29, 2021 Subjective Patient seen on daily rounds today. Is c/o a SCHMIDT. BP elevated this am (174/96). CP has been slowly rising throughout this hosptialization. Initially, his Avapro was held given his sepsis syndrome and mild WOODROW. He did NOT have hypotension or evidence of septic shock and has remained HD stable. Avapro resumed bu BP remains elevated. Clonidine on order prn. Otherwise, Repeat BC obtained yesterday-- awaiting final results. NGTD. He has remained afebrile and his WBC has remained normal. Vancomycin on board (dosing= 1000mg Q12h) with Trough due tomorrow at 0830. Case mgmt on board and notified that patient will required IV abx. Checking on home coverage. Review of Systems Review of Systems: All systems reviewed and are unremarkable except as noted in HPI and below Denies fevers, chills, headache, nasal congestion, sore throat, cough, chest pain, shortness of breath, palpitations, orthopnea, PND, abdominal pain, nausea, vomiting, diarrhea, constipation, dysuria, hematuria, frequency, back pain, joint pain or swelling, easy bruising or blooding, skin lesions or rashes. Physical Exam Physical Exam: General: Resting comfortably in his hospital bed.does not appear ill or toxic. NAD. HEENT: Head is AT/NC buccal mucosa is moist and pink Neck: No JVD. Negative hepatojugular reflex Cardiac: RRR with 2/6 BILLIE Lungs: CTA without W/R/R Abdomen: Normoactive X4. Soft and nontender in all quadrants. No CVA tenderness Extremities: No peripheral clubbing cyanosis or edema Neuro: A&O X4 cranial nerves II through XII are grossly intact no focal neuro deficits Skin: No obvious skin lesions or rashes Psych: Appropriate affect pleasant and cooperative Results & Data Results & Data ([facility]) Vital Signs (Past 12 Hours) Vital Signs Temp Pulse Pulse Resp BP BP Pulse Ox 06/02/21 08:00 95 H 06/02/21 07:07 36.9 C 91 H 20 174/96 H 91 06/02/21 03:51 36.8 C 87 20 160/84 H 94 Laboratory Results 06/02/21 06:14 06/02/21 06:14 PG Care Time/CCT Total # of Minutes Spent Total Time Spent with Patient: Total time spent is greater than 50% in coord ination of care (as documented) at patient's floor/unit and/or counseling patient: C[place] [address] Subseq Hosp Care Lvl 3 Patient Type Established History Comprehensive Exam Comprehensive Medical Decision Making High Complexity Diagnoses Sepsis syndrome Bacteremia R78.81 UTI (urinary tract infection) N39.0 Nephrolithiasis N20.0 Hypertension I10 Non-alcoholic fatty liver disease K76.0 Obstructive sleep apnea G47.33 Diabetes mellitus E11.9
[2021-06-02] MEDS: SACCHAROMYCES BOULARDII 250 MG CAP PO SCH (19:57)
[2021-06-02] MEDS: metFORMIN HCL ER 500 MG TABCR PO SCH (19:57)
[2021-06-02] MEDS: INSULIN GLARGINE SOLOSTAR 100 UNITS/ML 3 ML PEN SC SCH (20:22)
[2021-06-03] MEDS ORDERED: VANCOMYCIN TROUGH ONE (08:30)
[2021-06-03 08:41] LABS: Basophils # (auto) 0.05 K/uL (0-0.2); Basophils % (auto) 0.5 %; Eosinophils # (auto) 0.46 K/uL (0-0.5); Eosinophils % (auto) 4.4 %; Hematocrit (blood only) 39.2 % (42-52); Hemoglobin 12.8 g/dL (14.0-18.0); Immature Granulocytes # (auto) 0.05 K/uL (0.00-0.02); Immature Granulocytes % (auto) 0.5 %; Mean Corpuscular Hemoglobin 30.5 pg (25-34); Mean Corpuscular Hgb Conc 32.7 g/dL (32-36); Mean Corpuscular Volume 93.3 fL (80-100); Mean Platelet Volume 9.1 fL (7.4-10.4); Monocytes # (auto) 0.65 K/uL (0.11-0.59); Monocytes % (auto) 6.2 %; Neutrophils # (auto) 7.19 K/uL (1.4-6.5); Neutrophils % (auto) 68.4 %; Platelet Count 359 K/uL (130-400); RDW Coefficient of Variation 14.2 % (11.5-14.5); RDW Standard Deviation 48.6 fL (36.4-46.3)
[2021-06-03] MEDS: INSULIN ASPART 100 UNITS/ML 3 ML PEN SC SCH ×4 (08:52→20:23)
[2021-06-03] MEDS: DULoxetine HCL 60 MG CAP PO SCH (08:55)
[2021-06-03] MEDS: VITAMIN B COMPLEX TAB PO SCH (08:55)
[2021-06-03] MEDS: SACCHAROMYCES BOULARDII 250 MG CAP PO SCH ×2 (08:55→20:26)
[2021-06-03] MEDS: amLODIPine BESYLATE 5 MG TAB PO SCH (08:55)
[2021-06-03] MEDS: CHOLECALCIFEROL 1,000 UNITS 25 MCG TAB PO SCH (08:56)
[2021-06-03] MEDS: metFORMIN HCL ER 500 MG TABCR PO SCH ×2 (08:56→20:26)
[2021-06-03 09:01] LABS: BUN Creatinine Ratio 13.2 (10-20); Calcium 9.3 mg/dl (8.5-10.1); Creatinine Clr Calc Pharmacy 95.3 ml/min; Est GFR (African American) 86.5 ml/min; Est GFR (Non-African American) 74.7 ml/min; Potassium 3.8 mmol/L (3.5-5.1)
[2021-06-03] MEDS: VANCOMYCIN HCL 1,000 MG in SODIUM CHLORIDE 0.9% 250 ML IV SCH (09:34)
--- NOTE | 2021-06-03 09:47 | Pharmacy Report ---
Pharmacy Abx Dose Short Note - Date of Service June 03, 2021 - Assessment & Plan Assessment 66 year old M receiving IV Vancomycin for treatment of bacteremia. Day # 5 of antimicrobial therapy. Plan is for patient to be discharged on vancomycin to complete a 14 day course * Patient has been receiving Vancomycin 1000mg q12 as per dosing recommendations from [employer], which predicted trough of 16.5 mg/dL * Trough level today 06/03 @ 0815 (appropriately drawn) of 9.5 mg/dL, is subtherapeutic and much lower than predicted. It appears patient is clearing Vancomycin more rapidly than anticipated. His renal function also continues to improve * Will maintain q12 regimen as this is preferred for outpatient dosing and aggressively increase dose due to indication of bacteremia (target trough 15- 20 mg/dL). Given his obesity (BMI 42.6 kg/m2), may need to eventually decr' dose (i.e. 1250mg) once patient starts accumulating Vancomycin. Plan Vancomycin * AUC/ARELY is the preferred PK/PD target for vancomycin * AUC guided dosing is effective and associated with decreased risk of nephrotoxicity compared to traditional trough targets * According to [facility], Vancomycin regimen of 1500mg IV q12 will result in trough level of 18.4 mcg/mL to achieve target AUC/ARELY of 400-600 mg/L.hr and may be associated with a 15 % risk of nephrotoxicity * Trough level ordered for: 06/04/21 @ 0930 to confirm predicted pharmacokinetics Pharmacy will continue to follow and will adjust dose/frequency as necessary. Thank you. Discharge Recommendations: * Once target trough (or AUC) has been achieved on two consecutive level draws, obtain trough level at least once weekly (more frequent monitoring should be considered with changing renal function/worsening clinical status) * Scr at least twice weekly for week 1, then weekly (more frequent monitoring should be considered with changing renal function/worsening clinical status) * may consider CBC weekly
[2021-06-03] MEDS: VANCOMYCIN HCL 1,500 MG in SODIUM CHLORIDE 0.9% 500 ML IV SCH ×2 (10:17→21:04)
[2021-06-03] MEDS: IRBESARTAN 150 MG TAB PO SCH (12:12)
--- NOTE | 2021-06-03 13:58 | Hospitalist Progress Note ---
Date of Service June 03, 2021 Assessment & Plan (1) Bacteremia: Plan: * CoNS with MDR from UTI (as growing in both urine and blood) * sensitive to Vanco/Dapto and tetracyclines * will use IV abx x 2 weeks given risk of Staph species to migrate--> dose a djusted to 1500 mg IV every 12 hours with follow-up trough tomorrow at 0930. Day #1 of abx to start once therapeutic. * Case management on board to help determine if patient has home antibiotic coverage. If so, will need to be therapeutic prior to discharge. If no home antibiotic coverage, requesting [facility] facility for IV antibiotic therapy. * echo done showing no evidence of vegetation * home consultation done with ID regarding length of treatment given retained stone/stent ( 9mm obstructing stone in left UJV on presentation with stent placed 05/29) Urology planning on ESWL as an outpatient ID recommending 2 weeks of IV antibiotic therapy followed by oral doxycycline--to complete 3 days after stone and stent removal * on probiotic to reduce risk of Cdiff. * will need midline (preferred over PICC given location of termination and risk of migratory infection) for 2 weeks of IV abx therapy. Repeat blood cultures drawn. once final, will plan midline, consent obtained and on chart (2) UTI (urinary tract infection): Plan: * See above as outlined (3) Sepsis syndrome: Plan: * sepsis syndrome has since resolved: initially with tachycardia (140), fever (101.3), Leukocytosis (20K with left shift) and lactic acidosis (4.2). NO EVIDENCE OF SEPTIC SHOCK. Sepsis syndrome has since resolved (4) Nephrolithiasis: Plan: * s/p cystoscopy with left retrograde pyelogram and stent placement (on 05/29) * Pain adequately controlled * Urology on boardappreciate recommendations * Plan is for ESWL as an outpatient (5) Hypertension: Plan: * on norvasc and avapro (as prior to hospitalization) * BP had been elevated. Norvasc subsequently increased to 10mg * continue to monitor (6) Non-alcoholic fatty liver disease: Plan: Continue to monitor, no signs of liver failure (7) Obstructive sleep apnea: Plan: * CPAP ordered (8) Diabetes mellitus: Plan: * Patient with hyperglycemia initially * Metformin on hold up front (given lactic acidemiawhich has since now resolved). has since been resumed * A1C obtained and elevated at 9.5% * recommend retirement insulin. FBS currently acceptable 133 * diabetes educator has met with patient to educate on self injections * Lengthy discussion with patient regarding importance of good glycemic control * will need Rx for insulin upon D/C * Plan: Plan of care discussed with Dr. Bennett. Further orders as warranted. Admission and Anticipated Discharge Date Admission Date: May 29, 2021 Subjective Patient seen on daily rounds today. Vocalizes no complaints or concerns. Denies fevers, chills, chest pain, shortness of breath, abdominal pain, nausea or vomiting. No flank pain or discomfort from stent. Remains on vancomycin. Dose increased from 1 g every 24 to 1 g every 12. Despite this, still subtherapeutic with a trough of 9.5. Pharmacy on board and has since increased his vancomycin to 1500 mg every 12 hours. Repeat blood cultures are pending. No growth today. Once final, can proceed with midline placement. Headache improved today. Thought to be due to elevated BP. Norvasc since increased to 10 mg daily. Review of Systems Review of Systems: All systems reviewed and are unremarkable except as noted in HPI and below Denies fevers, chills, headache, nasal congestion, sore throat, cough, chest pain, shortness of breath, palpitations, orthopnea, PND, abdominal pain, nausea, vomiting, diarrhea, constipation, dysuria, hematuria, frequency, back pain, joint pain or swelling, easy bruising or blooding, skin lesions or rashes. Physical Exam Physical Exam: General: Resting comfortably in his hospital bed. Does not appear ill or toxic. NAD. HEENT: Head is AT/NC buccal mucosa is moist and pink Neck: No JVD. Negative hepatojugular reflex Cardiac: RRR 2/6 to 3/6 BILLIE Lungs: CTA without W/R/R Abdomen: Normoactive X4. Soft and nontender in all quadrants. No CVA tenderness Extremities: No peripheral clubbing cyanosis or edema Neuro: A&O X4 cranial nerves II through XII are grossly intact no focal neuro deficits Skin: No obvious skin lesions or rashes Psych: Appropriate affect pleasant and cooperative Results & Data Results & Data ([facility]) Vital Signs (Past 12 Hours) Vital Signs Temp Pulse Resp BP Pulse Ox 09/19/21 12:11 91 H 144/74 H 06/03/21 07:30 36.6 C 85 18 149/80 H 95 Laboratory Results 06/03/21 08:15 06/03/21 08:15 Vancomycin trough: 9.5 PG Care Time/CCT Total # of Minutes Spent Total Time Spent with Patient: Total time spent is greater than 50% in coordination of care (as documented) at patient's floor/unit and/or counseling patient: Coding [place] [address] Subseq Hosp Care Lvl 3 Patient Type Established History Detailed Exam Detailed Diagnoses Bacteremia R78.81 UTI (urinary tract infection) N39.0 Sepsis syndrome Nephrolithiasis N20.0 Hypertension I10 Non-alcoholic fatty liver disease K76.0 Obstructive sleep apnea G47.33 Diabetes mellitus E11.9
[2021-06-03] MEDS: INSULIN GLARGINE SOLOSTAR 100 UNITS/ML 3 ML PEN SC SCH (20:22)
[2021-06-04] MEDS: VITAMIN B COMPLEX TAB PO SCH (07:25)
[2021-06-04] MEDS: CHOLECALCIFEROL 1,000 UNITS 25 MCG TAB PO SCH (07:26)
[2021-06-04] MEDS: IRBESARTAN 150 MG TAB PO SCH (07:27)
[2021-06-04] MEDS: metFORMIN HCL ER 500 MG TABCR PO SCH ×2 (07:28→20:33)
[2021-06-04] MEDS: amLODIPine BESYLATE 5 MG TAB PO SCH (07:28)
[2021-06-04] MEDS: DULoxetine HCL 60 MG CAP PO SCH (07:29)
[2021-06-04] MEDS: SACCHAROMYCES BOULARDII 250 MG CAP PO SCH ×2 (07:29→20:34)
--- NOTE | 2021-06-04 08:33 | Hospitalist Progress Note ---
Date of Service June 04, 2021 Assessment & Plan (1) Bacteremia: Plan: * CoNS with MDR from UTI (as growing in both urine and blood) * sensitive to Vanco/Dapto and tetracyclines * will use IV abx x 2 weeks given risk of Staph species to migrate--> dose a djusted to 1500 mg IV every 12 hours with follow-up trough tomorrow at 0930. Day #1 of abx to start once therapeutic. * Case management on board to help determine if patient has home antibiotic coverage. If so, will need to be therapeutic prior to discharge. If no home antibiotic coverage, requesting [facility] bed facility for IV antibiotic therapy. * echo done showing no evidence of vegetation * home consultation done with ID regarding length of treatment given retained stone/stent ( 9mm obstructing stone in left UJV on presentation with stent placed 05/29) Urology planning on [facility] as an outpatient ID (previously [facility], no official consult in system ) -->recommending 2 weeks of IV antibiotic therapy followed by oral do xycycline--to complete 3 days after stone and stent removal * on probiotic to reduce risk of Cdiff. * Midline placed this morning 06/04, however this blew. * Discussed with IV team and will place PICC line given vancomycin. * Discussed with pharmacy given vancomycin trough 13 this morningwe will continue current course given risk for accumulation given his BMI of 42 but suspect he would be therapeutic by tomorrow * Updated case management on plans for IV antibioticswill provide with prescription tomorrow. They are checking to see what his insurance is covered as there were talks about a [facility] bed however patient does not have any acute skilled needs at this time it may be difficult to arrange that currently Blood cultures from 06/01 remain negative. No further fevers and white count has remained normal on repeat Given elevated BPs, discussed with Urology LOCK ASSEMBLER and will add flomax this evening which hopefully will help w stone as well -- send rx at d/c Possible discharge tomorrow with home health and IV antibiotics however will need to see termination based on his insurance coverage Continue to monitor labs in a.m. (2) UTI (urinary tract infection): Plan: * See above as outlined (3) Sepsis syndrome: Plan: * sepsis syndrome has since resolved: initially with tachycardia (140), fever (101.3), Leukocytosis (20K with left shift) and lactic acidosis (4.2). NO EVIDENCE OF SEPTIC SHOCK. * Sepsis syndrome has since resolved (4) Nephrolithiasis: Plan: * s/p cystoscopy with left retrograde pyelogram and stent placement (on 05/29) * Pain adequately controlled * Urology on boardappreciate recommendations * Plan is for [facility] as an outpatient --discussed with [facility] and they are arranging to get him in with a PA on this week hopefully for definitive stone treatment (5) Hypertension: Plan: * on norvasc and avapro (as prior to hospitalization) * BP had been elevated. Norvasc subsequently increased to 10mg and blood pressure currently 149/80 and will continue current regimen. * Given stone, will also add flomax 0.4mg HS and continue at d/c. Should also help w BP * continue to monitor (6) Non-alcoholic fatty liver disease: Plan: * Continue to monitor, no signs of liver failure (7) Obstructive sleep apnea: Plan: * CPAP ordered and he states he was given 1 of these during admission however he uses the nasal pillows at home and was not able to be provided with this and he states that the machine was removed. He notes that he feels like he had a period of apnea last night and noted that his PCP told him that he should never sleep without it ever given his severe sleep apnea. * Discussed with nursing to contact respiratory therapist to arrange his CPAP provided for tonightpatient states he believes someone may be able to bring in his nasal pillows if we are not able to accommodate this however he is agreeable to try the mask to at least be getting some therapy at night while sleeping (8) Diabetes mellitus: Plan: * Patient with hyperglycemia initially * Metformin on hold up front (given lactic acidemiawhich has since now resolved ). has since been resumed * A1C obtained and elevated at 9.5% * recommend terminal operations manager insulin. FBS currently acceptable 133 * parent educator has met with patient to educate on self injections * Lengthy discussion with patient regarding importance of good glycemic control * will need Rx for insulin upon D/C --> decreased basal insulin to 24 units given continued drop on morning labs to prevent hypoglycemia. Continue to monitor with this reduced dose and adjust as needed Plan: Possible tomorrow versus Friday Case management following and will need to remain on IV antibiotics until stone and stent treated as above mom Admission and Anticipated Discharge Date Admission Date: May 29, 2021 Supervising Physician Co-Signing Physician Notes Attending Attestation - Chart reviewed in detail, care plan d/w MARK Bazan. I agree w/ the shanks components of her documentation. 66yo male POD #6 s/p left ureteral stent placement 2nd to obstructing left UVJ stone. Course complicated by coag neg staph UTI with bacteremia and sepsis. Repeat blood cx's negative and echo w/o obvious vegetations. Needs 2-week course of IV abx (vanco or daptomycin will suffice) followed by orals. Needs line placement for such. Dispo planning. Gerry Marie MD Subjective Patient evaluated this morning. Feeling well. Midline blew, getting PICC line currently. 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 Patient agreeale. Uses CPAP at home w nasal pillows. Had one one day but not since then. Has nasal pillows and states machine had been taken during stay. Didn't get great sleep and was told by his PCP to never be without. He believes he awoke last night in bed during an apneic period. Will alert respiratory therapy and he is agreeable to mask if needed and will have RN let him know to see if maybe someone could bring one in. No fevr, chlls, chest pain, shortness of breath, abdominal pain (states normal morning BM today) , nausea, vomiting or dysuria. Discussed subtherapeutic on vanco trough this morning but discussed w pharmacy and will continue current course. LIkely inpatient at least to tomorrow if not Friday. If unable to get abx at d/c he is agreeable to [facility] however did discuss with case management as this information may have been incorrectly provided to patient as he does not have any skilled need and this may not be an option. Case management was to check with his insurance to see what coverage will be. Review of Systems Review of Systems: All systems reviewed & are unremarkable except as noted in HPI & below Physical Exam Physical Exam: General: Resting comfortably in his hospital bed. Does not appear ill or toxic. NAD. Laughing and joking HEENT: Atraumatic, normocephalic. Mucous membranes moist, pupils equal and reactive to light Neckno JVD Cardiacregular rate and rhythm with a systolic ejection murmur best appreciated right upper sternal border, no wheezes rubs or gallops appreciated. No calf edema and calves are nontender to palpation Abdomenpositive bowel sounds, soft, mild distention, nontender Musculoskeletalmoves all extremities no focal deficits appreciated Skincool, dry PsychAAO x3, euthymic Results & Data Results & Data ([facility]) Vital Signs (Past 12 Hours) Vital Signs Temp Pulse Pulse Resp BP BP Pulse Ox 06/04/21 07:03 36.9 C 85 18 149/80 H 94 06/03/21 22:33 36.8 C 86 18 135/69 93 Laboratory Results 06/04/21 06/03/21 06/03/21 Range/Units 08:13 20:21 17:03 WBC (4.8-10.8) K/uL RBC (4.7-6.1) M/uL Hgb (14.0-18.0) g/dL Hct (42-52) % MCV (80-100) fL MCH (25-34) pg MCHC (32-36) g/dL RDW Std Deviation (36.4-46.3) fL RDW Coeff of Keven (11.5-14.5) % Plt Count (130-400) K/uL MPV (7.4-10.4) fL Immature Gran % (Auto) % Neut % (Auto) % Lymph % (Auto) % [place] % (Auto) % Eos % (Auto) % Baso % (Auto) % Neut # (Auto) (1.4-6.5) K/uL Lymph # (Auto) (1.2-3.4) K/uL [place] # (Auto) (0.11-0.59) K/uL Eos # (Auto) (0-0.5) K/uL Baso # (Auto) (0-0.2) K/uL Immature Gran # (Auto) (0.00-0.02) K/uL Sodium (136-145) mmol/L Potassium (3.5-5.1) mmol/L Chloride (98-107) mmol/L Carbon Dioxide (21-32) mmol/L Anion Gap (3-11) BUN (7-18) mg/dl Creatinine (0.6-1.4) mg/dl Est Cr Clr Drug Dosing ml/min Est GFR ( Amer) ml/min Est GFR (Non-Af Amer) ml/min BUN/Creatinine Ratio (10-20) Glucose (70-99) mg/dl POC Glucose 97 144 H 126 H (70-99) mg/dl Calcium (8.5-10.1) mg/dl Vancomycin Trough (See Comment) mcg/ml 06/03/21 06/03/21 06/03/21 Range/Units 12:23 08:15 08:15 WBC (4.8-10.8) K/uL RBC (4.7-6.1) M/uL Hgb (14.0-18.0) g/dL Hct (42-52) % MCV (80-100) fL MCH (25-34) pg MCHC (32-36) g/dL RDW Std Deviation (36.4-46.3) fL RDW Coeff of Keven (11.5-14.5) % Plt Count (130-400) K/uL MPV (7.4-10.4) fL Immature Gran % (Auto) % Neut % (Auto) % Lymph % (Auto) % [place] % (Auto) % Eos % (Auto) % Baso % (Auto) % Neut # (Auto) (1.4-6.5) K/uL Lymph # (Auto) (1.2-3.4) K/uL [place] # (Auto) (0.11-0.59) K/uL Eos # (Auto) (0-0.5) K/uL Baso # (Auto) (0-0.2) K/uL Immature Gran # (Auto) (0.00-0.02) K/uL Sodium 140 (136-145) mmol/L Potassium 3.8 (3.5-5.1) mmol/L Chloride 105 (98-107) mmol/L Carbon Dioxide 28 (21-32) mmol/L Anion Gap 7.0 (3-11) BUN 14 (7-18) mg/dl Creatinine 1.05 (0.6-1.4) mg/dl Est Cr Clr Drug Dosing 95.3 ml/min Est GFR ( Amer) 86.5 ml/min Est GFR (Non-Af Amer) 74.7 ml/min BUN/Creatinine Ratio 13.2 (10-20) Glucose 133 H (70-99) mg/dl POC Glucose 131 H (70-99) mg/dl Calcium 9.3 (8.5-10.1) mg/dl Vancomycin Trough 9.5 (See Comment) mcg/ml 06/03/21 Range/Units 08:15 WBC 10.50 (4.8-10.8) K/uL RBC 4.20 L (4.7-6.1) M/uL Hgb 12.8 L (14.0-18.0) g/dL Hct 39.2 L (42-52) % MCV 93.3 (80-100) fL MCH 30.5 (25-34) pg MCHC 32.7 (32-36) g/dL RDW Std Deviation 48.6 H (36.4-46.3) fL RDW Coeff of Keven 14.2 (11.5-14.5) % Plt Count 359 (130-400) K/uL MPV 9.1 (7.4-10.4) fL Immature Gran % (Auto) 0.5 % Neut % (Auto) 68.4 % Lymph % (Auto) 20.0 % [place] % (Auto) 6.2 % Eos % (Auto) 4.4 % Baso % (Auto) 0.5 % Neut # (Auto) 7.19 H (1.4-6.5) K/uL Lymph # (Auto) 2.10 (1.2-3.4) K/uL [place] # (Auto) 0.65 H (0.11-0.59) K/uL Eos # (Auto) 0.46 (0-0.5) K/uL Baso # (Auto) 0.05 (0-0.2) K/uL Immature Gran # (Auto) 0.05 H (0.00-0.02) K/uL Sodium (136-145) mmol/L Potassium (3.5-5.1) mmol/L Chloride (98-107) mmol/L Carbon Dioxide (21-32) mmol/L Anion Gap (3-11) BUN (7-18) mg/dl Creatinine (0.6-1.4) mg/dl Est Cr Clr Drug Dosing ml/min Est GFR ( Amer) ml/min Est GFR (Non-Af Amer) ml/min BUN/Creatinine Ratio (10-20) Glucose (70-99) mg/dl POC Glucose (70-99) mg/dl Calcium (8.5-10.1) mg/dl Vancomycin Trough (See Comment) mcg/ml PG Care Time/CCT Total # of Minutes Spent Total Time Spent with Patient: Total time spent is greater than 50% in coordination of care (as documented) at patient's floor/unit and/or counseling patient: Coding Level of Care Code 08514 Subseq Hosp Care Lvl 3 Diagnoses Bacteremia R78.81 UTI (urinary tract infection) N39.0 Sepsis syndrome Nephrolithiasis N20.0 Hypertension I10 Non-alcoholic fatty liver disease K76.0 Obstructive sleep apnea G47.33 Diabetes mellitus E11.9
[2021-06-04] MEDS: INSULIN ASPART 100 UNITS/ML 3 ML PEN SC SCH ×4 (08:50→20:39)
[2021-06-04] MEDS ORDERED: VANCOMYCIN TROUGH ONE (09:30)
[2021-06-04 10:01] LABS: Creatinine Clr Calc Pharmacy 80.7 ml/min; Est GFR (African American) 70.8 ml/min; Est GFR (Non-African American) 61.1 ml/min
--- NOTE | 2021-06-04 12:08 | Pharmacy Report ---
Pharmacy Vanc AUC Short Note - Date of Service June 04, 2021 - Assessment & Plan Assessment 66 year old M receiving vancomycin for treatment of coag -negative bacteremia. Pertinent microbiologic data includes: blood culture and urine culture growing oxacillin resistant coag negative staph. Day # 6 of antimicrobial therapy. Plan Vancomycin * AUC/ARELY is the preferred PK/PD target for vancomycin * AUC guided dosing is effective and associated with decreased risk of nephrotoxicity compared to traditional trough targets * Trough level of 13 mcg/mL is predicted to achieve target AUC/ARELY of ~617 mg/L.hr and may be associated with a 26 % risk of nephrotoxicity --- this is after 5 days of therapy. Will continue current dose until tomorrow when AUC expected to be > 400 mg/L.hr then reduce dose to 1250 mg IV q12 hours. * Continue dose of 1500 mg IV every 12 hours until tomorrow * Trough ordered for: 06/05/21 Pharmacy will continue to follow and will adjust dose/frequency as necessary. Thank you.
--- NOTE | 2021-06-04 12:51 | XRay Report ---
XR chest 1V portable INDICATION: MN ^Y ^PICC placement. TECHNIQUE: Single frontal radiograph of the chest was obtained. Comparison: None available at the time of this dictation. FINDINGS: There has been interval placement of a right PICC with the tip extending superiorly presumably in the jugular vein. The cardiomediastinal silhouette is normal. The lungs are clear. No evidence of pleura l effusion or pneumothorax. IMPRESSION: Right PICC tip extends superiorly likely into the jugular vein. ACT 112: Negative or not required by law. Electronically signed by: Anastacio Holly M.D. 06/04/2021 12:49 PM
--- NOTE | 2021-06-04 14:37 | XRay Report ---
XR chest 1V portable CLINICAL HISTORY: PICC placement COMPARISON STUDY: Chest radiograph June 04, 2021 at 12:39 PM. FINDINGS: Tip of right PICC projects over the cavoatrial junction. Lung volumes are normal. Lungs are clear. There is no pneumothorax or pleural effusion. Cardiac size is normal. Mediastinal contours ar e normal. There is no evidence for pulmonary edema. IMPRESSION: Tip of right PICC projects over the cavoatrial junction. ACT 112: Negative or not required by law. Electronically signed by: Jarvis Fleming M.D. 06/04/2021 2:35 PM
[2021-06-04] MEDS ORDERED: Nursing to Pharmacy Communication SCH (14:45)
[2021-06-04] MEDS: VANCOMYCIN HCL 1,500 MG in SODIUM CHLORIDE 0.9% 500 ML IV SCH (15:22)
[2021-06-04] MEDS: TAMSULOSIN HCL 0.4 MG CAP PO SCH (20:34)
[2021-06-04] MEDS: INSULIN GLARGINE SOLOSTAR 100 UNITS/ML 3 ML PEN SC SCH (20:37)
[2021-06-05] MEDS ORDERED: VANCOMYCIN TROUGH ONE (02:30)
[2021-06-05 03:14] LABS: Basophils # (auto) 0.07 K/uL (0-0.2); Basophils % (auto) 0.7 %; Eosinophils # (auto) 0.48 K/uL (0-0.5); Eosinophils % (auto) 4.7 %; Hematocrit (blood only) 36.7 % (42-52); Immature Granulocytes # (auto) 0.07 K/uL (0.00-0.02); Immature Granulocytes % (auto) 0.7 %; Lymphocytes # (auto) 2.56 K/uL (1.2-3.4); Lymphocytes % (auto) 25.3 %; Mean Corpuscular Hemoglobin 29.9 pg (25-34); Mean Corpuscular Hgb Conc 32.7 g/dL (32-36); Mean Corpuscular Volume 91.5 fL (80-100); Mean Platelet Volume 8.8 fL (7.4-10.4); Monocytes # (auto) 0.66 K/uL (0.11-0.59); Monocytes % (auto) 6.5 %; Neutrophils # (auto) 6.28 K/uL (1.4-6.5); Neutrophils % (auto) 62.1 %; Platelet Count 364 K/uL (130-400); RDW Coefficient of Variation 14.1 % (11.5-14.5); RDW Standard Deviation 47.4 fL (36.4-46.3); Red Blood Count 4.01 M/uL (4.7-6.1); White Blood Count 10.12 K/uL (4.8-10.8)
[2021-06-05] MEDS: VANCOMYCIN HCL 1,500 MG in SODIUM CHLORIDE 0.9% 500 ML IV SCH ×2 (03:23→12:28)
[2021-06-05 03:31] LABS: BUN Creatinine Ratio 15.9 (10-20); Calcium 8.8 mg/dl (8.5-10.1); Est GFR (African American) 77.5 ml/min; Est GFR (Non-African American) 66.9 ml/min
--- NOTE | 2021-06-05 08:16 | Hospitalist Progress Note ---
Date of Service June 05, 2021 Assessment & Plan (1) Bacteremia: Plan: * CoNS with MDR from UTI (as growing in both urine and blood) * sensitive to Vanco/Dapto and tetracyclines * will use IV abx x 2 weeks given risk of Staph species to migrate--> dose adjusted to 1500 mg IV every 12 hours with follow-up trough tomorrow at 0930. Day #1 of abx to start once therapeutic. * Case management on board to help determine if patient has home antibiotic coverage. If so, will need to be therapeutic prior to discharge. If no home antibiotic coverage, requesting [facility] facility for IV antibiotic therapy. * echo done showing no evidence of vegetation * home consultation done with ID regarding length of treatment given retained stone/stent ( 9mm obstructing stone in left UJV on presentation with stent placed 05/29) Urology planning on ESWL as an outpatient ID (previously [facility], no official consult in system ) -->recommending 2 weeks of IV antibiotic therapy followed by oral doxycycline--to complete 3 days after stone and stent removal * on probiotic to reduce risk of Cdiff. 06/05 * Attempted midline morning 06/04, however this blew and IV team placed a PICC line * Rx provided to case management for vancomycin 1250 mg every 12 hours * Vancomycin which should be continued through 06/16 when he will transition to oral doxycycline 100 mg twice a day which should be continued 3 days past s tone and stent treatment * Discussed with urology and arranged for follow-up appointment to be moved to the afternoon of so that he is able to meet with home infusion company in the morning on to get his first dose before that appointment * Blood cultures from 06/01 remain negative. White blood count within normal limits and patient remains afebrile * His parents are in their 80s and 90s respectively and unable to transport tomorrow evening after evening dose of antibiotics but will plan for discharge scrap burner around 630/7 AM on to meet infusion company at home * Flomax started evening 06/04 for urologic symptoms as well as blood pressure control which is much better today and denies any lightheadedness or dizziness * CPAP attempted to be placed last night but was too tight and felt claustrophobic. He could have parents bring in the nasal pillows but would prefer to avoid this and can use nasal cannula tonight and resume his home regimen when he is discharged Continue to monitor and plan for discharge morning (2) UTI (urinary tract infection): Plan: * See above as outlined (3) Sepsis syndrome: Plan: * sepsis syndrome has since resolved: initially with tachycardia (140), fever (101.3), Leukocytosis (20K with left shift) and lactic acidosis (4.2). NO EVIDENCE OF SEPTIC SHOCK. * Sepsis syndrome has since resolved (4) Nephrolithiasis: Plan: * s/p cystoscopy with left retrograde pyelogram and stent placement (on 05/29) * Pain adequately controlled * Urology on boardappreciate recommendations * Plan is for ESWL as an outpatient --discussed with Malia Lord and they are arranging to get him in with a PA on this week hopefully for definitive stone treatment and this was moved to the afternoon is discussed above (5) Hypertension: Plan: * on norvasc and avapro (as prior to hospitalization) * BP had been elevated. Norvasc subsequently increased to 10mg blood pressures did remain elevated * Was going to add additional agent last evening however discussed with urology and started Flomax to help with urinary symptoms/possible help with stone motion and blood pressure is 128/75 this morning and will continue current regimen and monitor * Will need outpatient follow-up to ensure no further titrations required (6) Non-alcoholic fatty liver disease: Plan: * Continue to monitor, no signs of liver failure (7) Obstructive sleep apnea: Plan: * CPAP ordered and he states he was given 1 of these during admission however he uses the nasal pillows at home and was not able to be provided with this and h e states that the machine was removed. He notes that he feels like he had a period of apnea last night and noted that his PCP told him that he should never sleep without it ever given his severe sleep apnea. * Respiratory placed on CPAP last evening however patient became quite phobic and was placed on nasal cannula. He notes that he will got more rest and we will continue this current regimen unless parents able to bring in nasal p pillows as above (8) Diabetes mellitus: Plan: * Patient with hyperglycemia initially * Metformin on hold up front (given lactic acidemiawhich has since now resolved). has since been resumed * A1C obtained and elevated at 9.5% * recommend skilled nursing insulin. FBS currently acceptable 133 * family living educator has met with patient to educate on self injections * Lengthy discussion with patient regarding importance of good glycemic control * will need Rx for insulin upon D/C * --> decreased basal insulin to 24 units given continued drop on morning labs to prevent hypoglycemia. Continue to monitor with this reduced dose and adjust as needed. * At Discharge, will need following: * 1.) Insulin glargine (U-100) 100 unit/ml (3ml) subcutaneous pen. * 2.) Pen Needle 32 gauge x ". * Blood sugars controlled on continue current regimen Plan: Continued inpatient stay with plans discharge scrap burner Admission and Anticipated Discharge Date Admission Date: May 29, 2021 Supervising Physician Co-Signing Physician Notes Attending Attestation - Chart reviewed in detail, care plan d/w MARK Bazan. I agree w/ the shanks components of her documentation. 66yo male POD #7 s/p left ureteral stent placement 2nd to obstructing left UVJ stone. Course complicated by coag neg staph UTI with bacteremia and sepsis. Repeat blood cx's negative ensuring sterility/test of cure -- and echo w/o obvious vegetations. Needs 2-week course of IV vancomycin followed by oral doxy. PICC now in place. Dispo planning. Vitals/labs remain stable. Gerry Marie MD Subjective Patient valuate this. States that he is feeling well. Discussed blood cultures continue to be negative and arranging IV antibiotics. Case management arranged that transfusion to start morning . He states that both of his parents who would be the transportation for him are unable to drive tomorrow evening after dose of vancomycin so we will plan for discharge after a.m. dose on 06/07 and have home infusion company, 8 AM for his dose. Also arranged with urology to change his appointment to later in the afternoon so that he can have both of these and same day as requested. He has been eating and drinking and urinating without issue. Moving his bowels does note some leakage but no increased diarrhea. Discussed that this could be from antibiotics as he had similar issues in the past with such. States his blood pressure had been quite high for some time and he is thankful for changes to his medications to help obtain better control this. Discussed increasing his Norvasc and he is to continue on his usual irbesartan. Discussed that we added Flomax to help with stone expulsion and dilation of ureters and this should also help with his blood pressure. He does endorse that he does have issues with starting stream at times he does have a history of prostate cancer. Discussed that given this Flomax may not be a bad idea in the future as well and we will utilize this daily at night to prevent hypotension. No fevers, chills, chest pain, shortness of breath, abdominal pain, nausea, vomiting at this time. Questions and concerns addressed Review of Systems Review of Systems: All systems reviewed & are unremarkable except as noted in HPI & below Physical Exam Physical Exam: General: Resting comfortably in his hospital bed. Does not appear ill or toxic. NAD. Laughing and joking and working on his laptop HEENT: Atraumatic, normocephalic. Mucous membranes moist, pupils equal and reactive to light Neckno JVD Cardiacregular rate and rhythm with a slight systolic ejection murmur best appreciated right upper sternal border, no wheezes rubs or gallops appreciated. No calf edema and calves are nontender to palpation Abdomenpositive bowel sounds, soft, mild distention, nontender Musculoskeletalmoves all extremities no focal deficits appreciated Skincool, dry . PICC to right upper extremity clean dry intact GUno Jones, no CVA tenderness PsychAAO x3, euthymic Results & Data Results & Data ([facility]) Vital Signs (Past 12 Hours) Vital Signs Temp Pulse Pulse Resp BP Pulse Ox 06/05/21 06:56 36.7 C 81 18 128/75 95 06/04/21 22:10 36.7 C 93 H 18 135/76 95 06/04/21 22:07 94 H 19 98 Laboratory Results 06/05/21 06/05/21 06/05/21 Range/Units 02:53 02:53 02:53 WBC 10.12 (4.8-10.8) K/uL RBC 4.01 L (4.7-6.1) M/uL Hgb 12.0 L (14.0-18.0) g/dL Hct 36.7 L (42-52) % MCV 91.5 (80-100) fL MCH 29.9 (25-34) pg MCHC 32.7 (32-36) g/dL RDW Std Deviation 47.4 H (36.4-46.3) fL RDW Coeff of Keven 14.1 (11.5-14.5) % Plt Count 364 (130-400) K/uL MPV 8.8 (7.4-10.4) fL Immature Gran % (Auto) 0.7 % Neut % (Auto) 62.1 % Lymph % (Auto) 25.3 % [place] % (Auto) 6.5 % Eos % (Auto) 4.7 % Baso % (Auto) 0.7 % Neut # (Auto) 6.28 (1.4-6.5) K/uL Lymph # (Auto) 2.56 (1.2-3.4) K/uL [place] # (Auto) 0.66 H (0.11-0.59) K/uL Eos # (Auto) 0.48 (0-0.5) K/uL Baso # (Auto) 0.07 (0-0.2) K/uL Immature Gran # (Auto) 0.07 H (0.00-0.02) K/uL Sodium 141 (136-145) mmol/L Potassium 4.0 (3.5-5.1) mmol/L Chloride 106 (98-107) mmol/L Carbon Dioxide 26 (21-32) mmol/L Anion Gap 9.0 (3-11) BUN 18 (7-18) mg/dl Creatinine 1.15 (0.6-1.4) mg/dl Est Cr Clr Drug Dosing 87.0 ml/min Est GFR ( Amer) 77.5 ml/min Est GFR (Non-Af Amer) 66.9 ml/min BUN/Creatinine Ratio 15.9 (10-20) Glucose 133 H (70-99) mg/dl POC Glucose (70-99) mg/dl Calcium 8.8 (8.5-10.1) mg/dl Vancomycin Trough 12.2 (See Comment) mcg/ml 06/04/21 06/04/21 06/04/21 Range/Units 20:37 17:17 12:27 WBC (4.8-10.8) K/uL RBC (4.7-6.1) M/uL Hgb (14.0-18.0) g/dL Hct (42-52) % MCV (80-100) fL MCH (25-34) pg MCHC (32-36) g/dL RDW Std Deviation (36.4-46.3) fL RDW Coeff of Keven (11.5-14.5) % Plt Count (130-400) K/uL MPV (7.4-10.4) fL Immature Gran % (Auto) % Neut % (Auto) % Lymph % (Auto) % [place] % (Auto) % Eos % (Auto) % Baso % (Auto) % Neut # (Auto) (1.4-6.5) K/uL Lymph # (Auto) (1.2-3.4) K/uL [place] # (Auto) (0.11-0.59) K/uL Eos # (Auto) (0-0.5) K/uL Baso # (Auto) (0-0.2) K/uL Immature Gran # (Auto) (0.00-0.02) K/uL Sodium (136-145) mmol/L Potassium (3.5-5.1) mmol/L Chloride (98-107) mmol/L Carbon Dioxide (21-32) mmol/L Anion Gap (3-11) BUN (7-18) mg/dl Creatinine (0.6-1.4) mg/dl Est Cr Clr Drug Dosing ml/min Est GFR ( Amer) ml/min Est GFR (Non-Af Amer) ml/min BUN/Creatinine Ratio (10-20) Glucose (70-99) mg/dl POC Glucose 173 H 126 H 144 H (70-99) mg/dl Calcium (8.5-10.1) mg/dl Vancomycin Trough (See Comment) mcg/ml 06/04/21 06/04/21 06/04/21 Range/Units 09:17 09:17 08:13 WBC (4.8-10.8) K/uL RBC (4.7-6.1) M/uL Hgb (14.0-18.0) g/dL Hct (42-52) % MCV (80-100) fL MCH (25-34) pg MCHC (32-36) g/dL RDW Std Deviation (36.4-46.3) fL RDW Coeff of Keven (11.5-14.5) % Plt Count (130-400) K/uL MPV (7.4-10.4) fL Immature Gran % (Auto) % Neut % (Auto) % Lymph % (Auto) % [place] % (Auto) % Eos % (Auto) % Baso % (Auto) % Neut # (Auto) (1.4-6.5) K/uL Lymph # (Auto) (1.2-3.4) K/uL [place] # (Auto) (0.11-0.59) K/uL Eos # (Auto) (0-0.5) K/uL Baso # (Auto) (0-0.2) K/uL Immature Gran # (Auto) (0.00-0.02) K/uL Sodium (136-145) mmol/L Potassium (3.5-5.1) mmol/L Chloride (98-107) mmol/L Carbon Dioxide (21-32) mmol/L Anion Gap (3-11) BUN (7-18) mg/dl Creatinine 1.24 (0.6-1.4) mg/dl Est Cr Clr Drug Dosing 80.7 ml/min Est GFR ( Amer) 70.8 ml/min Est GFR (Non-Af Amer) 61.1 ml/min BUN/Creatinine Ratio (10-20) Glucose (70-99) mg/dl POC Glucose 97 (70-99) mg/dl Calcium (8.5-10.1) mg/dl Vancomycin Trough 13.0 (See Comment) mcg/ml PG Care Time/CCT Total # of Minutes Spent Total Time Spent with Patient: Total time spent is greater than 50% in coordination of care (as documented) at patient's floor/unit and/or counseling patient: Coding Level of Care Code 71660 Subseq Hosp Care Lvl 3 Diagnoses Bacteremia R78.81 UTI (urinary tract infection) N39.0 Sepsis syndrome Nephrolithiasis N20.0 Hypertension I10 Non-alcoholic fatty liver disease K76.0 Obstructive sleep apnea G47.33 Diabetes mellitus E11.9
[2021-06-05] MEDS: amLODIPine BESYLATE 5 MG TAB PO SCH (08:46)
[2021-06-05] MEDS: CHOLECALCIFEROL 1,000 UNITS 25 MCG TAB PO SCH (08:46)
[2021-06-05] MEDS: DULoxetine HCL 60 MG CAP PO SCH (08:46)
[2021-06-05] MEDS: IRBESARTAN 150 MG TAB PO SCH (08:46)
[2021-06-05] MEDS: metFORMIN HCL ER 500 MG TABCR PO SCH ×2 (08:47→20:47)
[2021-06-05] MEDS: VITAMIN B COMPLEX TAB PO SCH (08:47)
[2021-06-05] MEDS: SACCHAROMYCES BOULARDII 250 MG CAP PO SCH ×2 (08:47→20:48)
[2021-06-05] MEDS: INSULIN ASPART 100 UNITS/ML 3 ML PEN SC SCH ×4 (08:47→20:45)
--- NOTE | 2021-06-05 10:30 | Pharmacy Report ---
Pharmacy Abx Dose Short Note - Date of Service June 05, 2021 - Assessment & Plan Assessment 66 year old M receiving vancomycin for treatment of coag-negative staph bacteremia Day # 7 of antimicrobial therapy. Plan Vancomycin * Trough level of 12.2 mcg/mL is expected to produce and AUC 400-600 mg/L.hr Patient did have a gap of 5 hours between when dose ordered and given due to lack of IV access so trough is slightly lower. * Change to 1250 mg IV every 12 hours starting tomorrow due to patient's body habitus expect accumulation. * Goal trough level for coag negative staph bacteremia : ~15 mcg/mL * Trough not ordered at this time as patient expected to be discharged Pharmacy will continue to follow and will adjust dose/frequency as necessary. Thank you.
[2021-06-05] MEDS: INSULIN GLARGINE SOLOSTAR 100 UNITS/ML 3 ML PEN SC SCH (20:45)
[2021-06-05] MEDS: TAMSULOSIN HCL 0.4 MG CAP PO SCH (20:48)
[2021-06-05] MEDS: VANCOMYCIN HCL 1,250 MG in SODIUM CHLORIDE 0.9% 250 ML IV SCH (20:58)
[2021-06-06] MEDS ORDERED: VANCOMYCIN HCL 1,250 MG in SODIUM CHLORIDE 0.9% 250 ML IV SCH (03:00)
[2021-06-06 06:30] LABS: Basophils # (auto) 0.07 K/uL (0-0.2); Basophils % (auto) 0.8 %; Eosinophils % (auto) 4.7 %; Hematocrit (blood only) 36.6 % (42-52); Hemoglobin 11.7 g/dL (14.0-18.0); Immature Granulocytes # (auto) 0.06 K/uL (0.00-0.02); Immature Granulocytes % (auto) 0.7 %; Lymphocytes # (auto) 2.16 K/uL (1.2-3.4); Lymphocytes % (auto) 25.5 %; Mean Corpuscular Hemoglobin 30.2 pg (25-34); Mean Corpuscular Volume 94.6 fL (80-100); Mean Platelet Volume 8.7 fL (7.4-10.4); Monocytes # (auto) 0.49 K/uL (0.11-0.59); Monocytes % (auto) 5.8 %; Neutrophils % (auto) 62.5 %; Platelet Count 388 K/uL (130-400); RDW Coefficient of Variation 14.3 % (11.5-14.5); RDW Standard Deviation 49.2 fL (36.4-46.3); Red Blood Count 3.87 M/uL (4.7-6.1); White Blood Count 8.48 K/uL (4.8-10.8)
[2021-06-06 07:12] LABS: BUN Creatinine Ratio 12.9 (10-20); Calcium 8.8 mg/dl (8.5-10.1); Creatinine Clr Calc Pharmacy 88.9 ml/min; Est GFR (African American) 85.5 ml/min; Est GFR (Non-African American) 73.8 ml/min
[2021-06-06] MEDS: IRBESARTAN 150 MG TAB PO SCH (08:13)
[2021-06-06] MEDS: VITAMIN B COMPLEX TAB PO SCH (08:13)
[2021-06-06] MEDS: CHOLECALCIFEROL 1,000 UNITS 25 MCG TAB PO SCH (08:13)
[2021-06-06] MEDS: DULoxetine HCL 60 MG CAP PO SCH (08:14)
[2021-06-06] MEDS: amLODIPine BESYLATE 5 MG TAB PO SCH (08:14)
[2021-06-06] MEDS: SACCHAROMYCES BOULARDII 250 MG CAP PO SCH ×2 (08:14→21:11)
[2021-06-06] MEDS: metFORMIN HCL ER 500 MG TABCR PO SCH ×2 (08:14→21:10)
[2021-06-06] MEDS: VANCOMYCIN HCL 1,250 MG in SODIUM CHLORIDE 0.9% 250 ML IV SCH ×2 (08:18→21:07)
--- NOTE | 2021-06-06 08:44 | Hospitalist Progress Note ---
Date of Service June 06, 2021 Assessment & Plan (1) Bacteremia: Plan: * CoNS with MDR from UTI (as growing in both urine and blood) * sensitive to Vanco/Dapto and tetracyclines * will use IV abx x 2 weeks given risk of Staph species to migrate--> dose adjusted to 1500 mg IV every 12 hours with follow-up trough tomorrow at 0930. Day #1 of abx to start once therapeutic. * Case management on board to help determine if patient has home antibiotic coverage. If so, will need to be therapeutic prior to discharge. If no home antibiotic coverage, requesting [facility] facility for IV antibiotic therapy. * echo done showing no evidence of vegetation * home consultation done with ID regarding length of treatment given retained stone/stent ( 9mm obstructing stone in left UJV on presentation with stent placed 05/29) Urology planning on ESWL as an outpatient ID (previously [facility], no official consult in system ) -->recommending 2 weeks of IV antibiotic therapy followed by oral doxycycline--to complete 3 days after stone and stent removal * on probiotic to reduce risk of Cdiff. 06/06 * PICC placed 06/04 * Continued Vancomycin --> to continue total 2 weeks (ending 06/16) then switch to Doxy 100mg PO BID. Weekly labs CBC, CMP, vanco trough and follow up labs with PCP. Dr Dudley already alerted * Urology follow up tomorrow afternoon * WBC wnl and patient remains afebrile * Cr stable and improved * Continues flomax as started by Urology which also helping with BP * To d/c in AM to meet home infusion company to start tomorrow (2) UTI (urinary tract infection): Plan: * See above as outlined (3) Sepsis syndrome: Plan: * sepsis syndrome has since resolved: initially with tachycardia (140), fever (101.3), Leukocytosis (20K with left shift) and lactic acidosis (4.2). NO EVIDENCE OF SEPTIC SHOCK. * Sepsis syndrome has since resolved (4) Nephrolithiasis: Plan: * s/p cystoscopy with left retrograde pyelogram and stent placement (on 05/29) * Pain adequately controlled * Urology on boardappreciate recommendations * Plan is for ESWL as an outpatient --discussed with Malia Lord and they are arranging to get him in with a PA on this week hopefully for definitive stone treatment and this was moved to the afternoon is discussed above (5) Hypertension: Plan: * on norvasc and avapro (as prior to hospitalization) * BP had been elevated. Norvasc subsequently increased to 10mg blood pressures did remain elevated * Was going to add additional agent however discussed with urology and started Flomax to help with urinary symptoms/possible help with stone motion and blood pressure is 137/71 * Will need outpatient follow-up to ensure no further titrations required (6) Non-alcoholic fatty liver disease: Plan: * Continue to monitor, no signs of liver failure (7) Obstructive sleep apnea: Plan: * CPAP ordered and he states he was given 1 of these during admission however he uses the nasal pillows at home and was not able to be provided with this and h e states that the machine was removed. He notes that he feels like he had a period of apnea last night and noted that his PCP told him that he should never sleep without it ever given his severe sleep apnea. * Respiratory placed on CPAP last evening however patient became quite phobic and was placed on nasal cannula. He notes that he will got more rest and we will continue this current regimen unless parents able to bring in nasal p pillows as above * --> currently tolerating NC at night and would like to wait until he gets home (8) Diabetes mellitus: Plan: * Patient with hyperglycemia initially * Metformin on hold up front (given lactic acidemiawhich has since now resolved). has since been resumed * A1C obtained and elevated at 9.5% * recommend assisted insulin. FBS currently acceptable 133 * mechanical maintenance supervisor has met with patient to educate on self injections * Lengthy discussion with patient regarding importance of good glycemic control * will need Rx for insulin upon D/C * --> decreased basal insulin to 22 units given continued drop on morning labs to prevent hypoglycemia. Continue to monitor with this reduced dose and adjust as needed. * At Discharge, will need following: * 1.) Insulin glargine (U-100) 100 unit/ml (3ml) subcutaneous pen. * 2.) Pen Needle 32 gauge x 5/32". * Blood sugars controlled on continue current regimen Plan: Continued inpatient stay with plans discharge life trainer tomorrow when ride available and able to meet [employer] to meet for 8am dose Urology follow up tomorrow afternoon Admission and Anticipated Discharge Date Admission Date: May 29, 2021 Supervising Physician Co-Signing Physician Notes Attending Attestation - Pt seen/examined, chart reviewed, care plan d/w MARK Bazan. I agree w/ the shanks components of her documentation. 66yo male POD #8 s/p left ureteral stent placement 2nd to obstructing left UVJ stone. Course complicated by coag neg staph UTI with bacteremia and sepsis. Repeat blood cx's negative ensuring sterility/test of cure. Echo w/o signs of SBE. Patient to d/c home early tomorrow morning (his mother is picking him up at 0615am). Plan - 2-week course of IV vancomycin followed by oral doxy x 2 weeks. [facility] post-d/c for stent and stone management. Discharge exam: gen - NAD, pleasant mouth - MMM neck - no JVD heart - RRR, s1 s2 lungs - CTA b/l abd - soft NT ND BS+ ext - no edema PICC line - right arm - c/d/i. Gerry Marie MD Subjective Patient evaluated this afternoon. Urinary symptoms of frequency are resolving. No further diarrhea. No fever, chills, chest pain, shortness of breath, n/v at this time. Discussed decreased insulin at d/c and will send supplies. [employer] to arrive tomorrow am and discussed follow up appt with Urology. Will plan for d/c tomorrow morning around 6:30/7 am when ride available. Review of Systems Review of Systems: All systems reviewed & are unremarkable except as noted in HPI & below Physical Exam Physical Exam: General: Resting comfortably in his hospital bed. Does not appear ill or toxic. NAD. Laughing and joking and working on his laptop HEENT: Atraumatic, normocephalic. Mucous membranes moist, pupils equal and reactive to light Neckno JVD Cardiacregular rate and rhythm with a slight systolic ejection murmur best appreciated right upper sternal border, no wheezes rubs or gallops appreciated. No calf edema and calves are nontender to palpation Abdomenpositive bowel sounds, soft, mild distention, nontender Musculoskeletalmoves all extremities no focal deficits appreciated Skincool, dry . PICC to right upper extremity clean dry intact GUno Jones, no CVA tenderness PsychAAO x3, euthymic Results & Data Results & Data ([facility]) Vital Signs (Past 12 Hours) Vital Signs Temp Pulse Resp BP Pulse Ox 06/06/21 07:17 36.7 C 82 16 123/74 98 06/05/21 23:16 36.7 C 86 18 126/73 96 Laboratory Results 06/06/21 06/06/21 06/06/21 Range/Units 08:09 06:20 06:20 WBC 8.48 (4.8-10.8) K/uL RBC 3.87 L (4.7-6.1) M/uL Hgb 11.7 L (14.0-18.0) g/dL Hct 36.6 L (42-52) % MCV 94.6 (80-100) fL MCH 30.2 (25-34) pg MCHC 32.0 (32-36) g/dL RDW Std Deviation 49.2 H (36.4-46.3) fL RDW Coeff of Keven 14.3 (11.5-14.5) % Plt Count 388 (130-400) K/uL MPV 8.7 (7.4-10.4) fL Immature Gran % (Auto) 0.7 % Neut % (Auto) 62.5 % Lymph % (Auto) 25.5 % [place] % (Auto) 5.8 % Eos % (Auto) 4.7 % Baso % (Auto) 0.8 % Neut # (Auto) 5.30 (1.4-6.5) K/uL Lymph # (Auto) 2.16 (1.2-3.4) K/uL [place] # (Auto) 0.49 (0.11-0.59) K/uL Eos # (Auto) 0.40 (0-0.5) K/uL Baso # (Auto) 0.07 (0-0.2) K/uL Immature Gran # (Auto) 0.06 H (0.00-0.02) K/uL Sodium 138 (136-145) mmol/L Potassium 4.0 (3.5-5.1) mmol/L Chloride 108 H (98-107) mmol/L Carbon Dioxide 26 (21-32) mmol/L Anion Gap 4.0 (3-11) BUN 14 (7-18) mg/dl Creatinine 1.06 (0.6-1.4) mg/dl Est Cr Clr Drug Dosing 88.9 ml/min Est GFR ( Amer) 85.5 ml/min Est GFR (Non-Af Amer) 73.8 ml/min BUN/Creatinine Ratio 12.9 (10-20) Glucose 116 H (70-99) mg/dl POC Glucose 111 H (70-99) mg/dl Calcium 8.8 (8.5-10.1) mg/dl 06/05/21 06/05/21 06/05/21 Range/Units 20:39 17:09 12:07 WBC (4.8-10.8) K/uL RBC (4.7-6.1) M/uL Hgb (14.0-18.0) g/dL Hct (42-52) % MCV (80-100) fL MCH (25-34) pg MCHC (32-36) g/dL RDW Std Deviation (36.4-46.3) fL RDW Coeff of Keven (11.5-14.5) % Plt Count (130-400) K/uL MPV (7.4-10.4) fL Immature Gran % (Auto) % Neut % (Auto) % Lymph % (Auto) % [place] % (Auto) % Eos % (Auto) % Baso % (Auto) % Neut # (Auto) (1.4-6.5) K/uL Lymph # (Auto) (1.2-3.4) K/uL [place] # (Auto) (0.11-0.59) K/uL Eos # (Auto) (0-0.5) K/uL Baso # (Auto) (0-0.2) K/uL Immature Gran # (Auto) (0.00-0.02) K/uL Sodium (136-145) mmol/L Potassium (3.5-5.1) mmol/L Chloride (98-107) mmol/L Carbon Dioxide (21-32) mmol/L Anion Gap (3-11) BUN (7-18) mg/dl Creatinine (0.6-1.4) mg/dl Est Cr Clr Drug Dosing ml/min Est GFR ( Amer) ml/min Est GFR (Non-Af Amer) ml/min BUN/Creatinine Ratio (10-20) Glucose (70-99) mg/dl POC Glucose 122 H 105 H 120 H (70-99) mg/dl Calcium (8.5-10.1) mg/dl PG Care Time/CCT Total # of Minutes Spent Total Time Spent with Patient: Total time spent is greater than 50% in coordination of care (as documented) at patient's floor/unit and/or counseling patient: Coding Level of Care Code 57217 Subseq Hosp Care Lvl 3 Diagnoses Bacteremia R78.81 UTI (urinary tract infection) N39.0 Sepsis syndrome Nephrolithiasis N20.0 Hypertension I10 Non-alcoholic fatty liver disease K76.0 Obstructive sleep apnea G47.33 Diabetes mellitus E11.9
[2021-06-06] MEDS: INSULIN ASPART 100 UNITS/ML 3 ML PEN SC SCH ×4 (09:14→21:07)
[2021-06-06 14:34] VITALS: O2SAT 94
--- NOTE | 2021-06-06 18:49 | Discharge Summary ---
Date of Service June 07, 2021 Admission HPI Per Admitting Provider This is a 66-year-old male with past medical history of [place], hypertension, GERD, [id number] diabetes mellitus that presents today with lower abdominal pain. Patient is pleasantly good historian. Patient states that the pain started last night. It was fairly mild but continued to worsen throughout the night into this morning. He denied any fevers or chills. He denied any changes in his bowel function. He did note that he had incomplete emptying of his urine but that there is no hematuria or dysuria associated with this. He denies any fevers or chills. He also denies any palpitations, chest pain, or shortness of breath. The pain became severe enough for him to come to the emergency room for further evaluation. In the ER, he was found to be hypertensive and tachycardic, his pulse did reach into the 140s and was sinus tach on monitor. CT scan showed a 9 mm stone at the left ureterovesicular junction the patient is now being admitted for obstructing nephrolithiasis. Patient was seen with the urology TOBIN. He tells us he had had nothing to eat since last night due to ongoing nausea. He is otherwise comfortable. Admission Exam Per Admitting Provider Constitutional: cooperative; no acute distress Neck: trachea midline, no thyromegaly Respiratory: normal respiratory effort Auscultation: lungs clear to auscultation bilaterally; no crackles, no rales, no rhonchi and no wheezes Cardiovascular: Rate/Rhythm: regular rhythm and + tachycardic Heart Sounds: normal S1 and normal S2 Gastrointestinal (Abdomen): Inspection/Auscultation: abdomen normal to inspection Percussion/Palpation: abdomen soft; abdomen nontender, no guarding, abdomen not rigid and no hepatosplenomegaly Skin: no rashes, warm and dry Genitourinary: no CVA tenderness Principal Diagnosis Sepsis, Bacteremia, UTI Discharge Exam General: Resting comfortably in his hospital bed. Does not appear ill or toxic. NAD. Laughing and joking and working on his laptop HEENT: Atraumatic, normocephalic. Mucous membranes moist, pupils equal and reactive to light Neckno JVD Cardiacregular rate and rhythm with a slight systolic ejection murmur best appreciated right upper sternal border, no wheezes rubs or gallops appreciated. No calf edema and calves are nontender to palpation Abdomenpositive bowel sounds, soft, mild distention, nontender Musculoskeletalmoves all extremities no focal deficits appreciated [place], dry . PICC to right upper extremity clean dry intact GUno Jones, no CVA tenderness PsychAAO x3, euthymic Discharge Data Allergies Allergy/AdvReac Type Severity Reaction Status Date / Time No Known Allergies Allergy Unverified 06/07/21 15:49 Consultations 05/29/21 14:03 ED Decision to Admit Stat 05/29/21 19:31 Consult Urology Routine Procedures Performed Operation Date: 05/29/21 08:20 Actual Procedures p Cystoscopy, Left Stent Placement(Left) - Hiro Ludwig MD Ordered Studies 05/29/21 10:54 US scrotum/testicle Stat 05/29/21 12:30 CT abd pelvis wo con Stat 05/29/21 17:00 FL retrograde includes kub Routine Diabetes Follow up Diabetes Follow-up Needed for HgbA1c >9% Hospital Course (1) Bacteremia: * CoNS with MDR from UTI (as growing in both urine and blood) * sensitive to Vanco/Dapto and tetracyclines * will use IV abx x 2 weeks given risk of Staph species to migrate * Case management on board to help determine if patient has home antibiotic coverage. If so, will need to be therapeutic prior to discharge. If no home antibiotic coverage, requesting [facility] facility for IV antibiotic therapy * echo done showing no evidence of vegetation * home consultation done with ID regarding length of treatment given retained stone/stent ( 9mm obstructing stone in left UJV on presentation with stent placed 05/29) Urology planning on [facility] as an outpatient ID (previously curbside Dr. Palm, no official consult in system ) -->recommending 2 weeks of IV antibiotic therapy followed by oral doxycycline--to complete 3 days after stone and stent removal * on probiotic to reduce risk of Cdiff. * PICC placed 06/04 * Continued Vancomycin --> to continue total 2 weeks then switch to Doxy 100mg PO BID. Weekly labs CBC, CMP, vanco trough and follow up labs with PCP. Dr Dudley already alerted * Urology follow for stent removal and stone treatment already arranged for afternoon of day of discharge and Flomax was started during hospital stay and this was also continued (also helping with blood pressure) * White blood count remained stable and patient remained afebrile * Blood cultures from 06/01 no growth to date final * Kidney function stable * To d/c in AM to meet home infusion company to start tomorrow (2) UTI (urinary tract infection): * See above as outlined (3) Sepsis syndrome: * sepsis syndrome has since resolved: initially with tachycardia (140), fever (101.3), Leukocytosis (20K with left shift) and lactic acidosis (4.2). NO EVIDENCE OF SEPTIC SHOCK. * Sepsis syndrome has since resolved (4) Nephrolithiasis: * s/p cystoscopy with left retrograde pyelogram and stent placement (on 05/29) * Pain adequately controlled * Urology on boardappreciate recommendations * Plan is for ESWL as an outpatient --discussed with [facility] and they are arranging to get him in with a PA on this week hopefully for definitive stone treatment and this was moved to the afternoon is discussed above (5) Hypertension: * on norvasc and avapro (as prior to hospitalization) * BP had been elevated. Norvasc subsequently increased to 10mg blood pressures did remain elevated * Was going to add additional agent however discussed with urology and started Flomax to help with urinary symptoms/possible help with stone motion * Blood pressure is much improved and remained stable with his usual Avapro, increase Norvasc and addition of Flomax as above and these were continued at discharge * Will need outpatient follow-up to ensure no further titrations required (6) Non-alcoholic fatty liver disease: * Continue to monitor, no signs of liver failure (7) Obstructive sleep apnea: * CPAP ordered and he states he was given 1 of these during admission however he uses the nasal pillows at home and was not able to be provided with this and he states that the machine was removed. He notes that he feels like he had a period of apnea last night and noted that his PCP told him that he s hould never sleep without it ever given his severe sleep apnea. * Respiratory placed on CPAP last evening however patient became quite phobic and was placed on nasal cannula. He notes that he will got more rest and we will continue this current regimen unless parents able to bring in nasal p pillows as above * To resume his usual CPAP at discharge and encouraged compliance as he typically utilizes faithfully at home (8) Diabetes mellitus: * Patient with hyperglycemia initially * Metformin on hold up front (given lactic acidemiawhich has since now resol lenin). has since been resumed * A1C obtained and elevated at 9.5% * recommend middle or intermediate school principal insulin. FBS currently acceptable 133 * childbirth educator has met with patient to educate on self injections * Lengthy discussion with patient regarding importance of good glycemic control * will need Rx for insulin upon D/C * --> decreased basal insulin to 22 units given continued drop on morning labs to prevent hypoglycemia. Continue to monitor with this reduced dose and adjust as needed. * At Discharge, will need following: * 1.) Insulin glargine (U-100) 100 unit/ml (3ml) subcutaneous pen. * 2.) Pen Needle 32 gauge x 5/32". * Blood sugars controlled on continue current regimen of 22 units and this was continued at discharge and his Metformin also resumed Arrangements were made for transfer patient is parents early this morning and patient was discharged around 6:30 AM. Discharge instructions and orders were already provided Total Time Total Time Spent Total Time Spent (In Minutes): 70 Discharge Plan Discharge Items Patient Disposition: Home - Home Health Services Reason For Visit: KIDNEY STONE Discharge Diagnosis: Sepsis, bacteremia, UTI Goals: You have been hospitalized for an urgent problem which required surgery. During your stay at [facility], we have made an effort to correct the problem that brought you to the hospital while keeping you as comfortable as possible. Surgery and medications were used to bring your condition under control and your discharge instructions will include directions for any medications you should take after leaving the hospital. Please make sure to follow the advice of your surgeon regarding follow up with the surgeon and with your primary care provider. Activity: Resume your previous activity Non-emergency contact: Primary Care Provider and Urologist Call non-emergency contact if: you have any medication questions, your symptoms worsen, your pain is concerning for you and you have a fever Follow-up/Referrals: Kolton Dudley MD [Primary Care Provider] - 06/13/21 10:10 am () Britany Tejada PA-C [Physician [place] [employer]] - 06/07/21 4:00 pm Diet: Carb Consistent or DM2 and Heart Healthy Addtl Attending Provider Instructions: Have been hospitalized for sepsis and bacteria in your bloodstream which is likely due to your urinary tract infection and kidney stones. Your blood grew a bacteria called coag negative staph. Discussion was had with infectious disease provider to ensure vegetation on heart valves due to concerns for spread in the blood and this did NOT show any vegetations thankfully. Your repeat blood cultures have remained negative and your course of vancomycin IV for 2 weeks through 06/16 we will then switch to oral doxycycline 100 mg by mouth twice daily up until 3 days after your stent definitively treated follow- up. You will need to have a weekly lab draws while on this antibiotic and Dr. Dudley's office was notified to be looking for these for continued monitoring to ensure the use kidney function remained stable as well as blood counts. You have a PICC line placed to your should be utilized for IV antibiotics in the infusion company is to meet you at your home this morning show you how to use this go over the first dose. Your follow-up with urology is this afternoon to get you set up as discussed for definitive treatment, given the stent placed on 05/29 but does still note an obstructing stone on the left next to the stent that Urology wanted to wait to remove until infection clearing. Your blood sugars are elevated and your A1c was checked which was greater than [address] you on long-acting insulin once daily at night to gain better control was decided. Your blood sugars have been much better controlled during inpatient stay and this should help with chronic medical issues and prevent complications. You were seen by the childbirth educator during your hospitalization in and prescription is for testing this supplies and should ch mary jane your sugars at home. Your blood pressure was elevated during this hospital stay and discuss it has been elevated in the past. Your amlodipine has been increased to 10 mg daily. You are also started on Flomax 0.4 mg by mouth at night to help with urinary symptoms and this also helps with blood pressure control this will be continued at discharge. Please follow-up with your primary care provider in the next week to monitor progress. Follow-up with urology as scheduled. Please return to the emergency department, chills, chest pain, shortness of breath, difficulty with urination or increased pain or inability to keep up with oral intake. Would avoid any ibuprofen or motrin for now, and rather use tylenol for pain until stone/stent treated. Has been a pleasure being a part of the medical team providing for you while you have been in the hospital. Take care! Pending Studies at Discharge: No Stand-Alone Forms: My [facility], Smoking Cessation, Virtual Emergency Department, Important Visit Information Medications and DC Order Prescriptions: New acetaminophen 325 mg Tablet 650 mg PO Q4H PRN (Reason: fever or pain) 30 Days Qty: 0 RF: 0 amlodipine [Norvasc] 5 mg Tablet 10 mg PO DAILY 30 Days Qty: 60 RF: 0 tamsulosin 0.4 mg Capsule 0.4 mg PO HS 30 Days Qty: 30 RF: 0 Saccharomyces boulardii [Florastor] 250 mg Capsule 250 mg PO BID Qty: 60 RF: 0 Lantus Solostar U-100 Insulin 100 unit/mL (3 mL) Insulin Pen 22 unit SC HS Qty: 15 RF: 0 vancomycin 750 mg recon soln 1,250 mg IV Q12 Qty: 10 RF: 0 (DME) pen needle, diabetic 32 gauge x 5/32" needle See Rx Instructions .Route Qty: 50 RF: 0 doxycycline hyclate 100 mg tablet 100 mg PO BID Qty: 28 RF: 1 Continued duloxetine 60 mg capsule,delayed release(DR/EC) 60 mg PO QAM Qty: 90 RF: 3 irbesartan 300 mg tablet 300 mg PO QAM Qty: 90 RF: 3 metformin 500 mg tablet extended release 24 hr 1,000 mg PO BID Qty: 360 RF: 3 sildenafil 100 mg tablet 100 mg PO DAILY PRN (Reason: sexual activity) Qty: 18 RF: 3 vitamin B complex Tablet 1 tab PO DAILY RF: 0 cholecalciferol (vitamin D3) [Vitamin D3] 25 mcg (1,000 unit) Capsule 25 mcg PO DAILY RF: 0 Excedrin Migraine 250-250-65 mg Tablet 1 tab PO Q6H PRN (Reason: Migraine Headache) RF: 0 aspirin 81 mg Tablet,Delayed Release (Dr/Ec) 81 mg PO DAILY RF: 0 Discontinued amlodipine 5 mg tablet 5 mg PO DAILY Qty: 30 RF: 5 ibuprofen 200 mg Tablet 200 mg PO Q6H PRN (Reason: Pain) RF: 0 Discharge Orders: Discharge Order (Routine); Ordered 06/06/21 Ordered By: Gerry Riggs/Other Patient Handouts: A1C, Managing Type 2 Diabetes, Special Foot Care for Diabetes, ED Prostatitis Admission Data Admit Date/Time: 05/29/21 14:41 Attending Provider: Gerry Marie Admit Provider: Jewel Zacarias Primary Care Provider: Kolton Dudley Other Providers: Clive Metcalf ; Jewel Zacarias ; Hiro Ludwig ; [facility] Other Interventions: Discharge Summary Assessment (RN) Last Done: 06/07/21 04:14 Supervising Physician Co-Signing Physician Notes Attending Attestation - Discharge care plan d/w PA Renate Bazan. I agree w/ the shanks components of her documentation. 66yo male s/p left ureteral stent placement 2nd to obstructing left UVJ stone. Course complicated by coag neg staph UTI with bacteremia and sepsis. Repeat blood cx's negative ensuring sterility/test of cure -- and echo w/o obvious vegetations. Plan is 2-week course of IV vancomycin followed by oral doxycycline. Has RUE PICC in place for IV vanco. Will need urology follow-up post-d/c for stone/stent management. Please see my discharge examination from the 06/06 hospitalist progress note. Gerry Marie MD Coding Level of Care Code None Diagnoses Bacteremia R78.81 UTI (urinary tract infection) N39.0 Sepsis syndrome Nephrolithiasis N20.0 Hypertension I10 Non-alcoholic fatty liver disease K76.0 Obstructive sleep apnea G47.33 Diabetes mellitus E11.9
[2021-06-06] MEDS ORDERED: INSULIN GLARGINE SOLOSTAR 100 UNITS/ML 3 ML PEN SC SCH (21:00)
[2021-06-06] MEDS: TAMSULOSIN HCL 0.4 MG CAP PO SCH (21:11)
[2021-06-06 23:35] VITALS: PULSE 90; TEMP 98.2
[2021-06-07 04:16] VITALS: BP 149/80
[2021-06-07] MEDS ORDERED: VANCOMYCIN TROUGH ONE (07:30)
== END 2021-06-07 06:00 | disposition home health service (06) | DRG 854 ==
LOC: ED 09:06 → SUATTDRO 14:41 → 2S 16:18 → OR 16:43 → 2S 16:44 → 3N 06-02 10:44